=== PATIENT | male | born 1970 | race Caucasian/White ===

== ENCOUNTER 2018-01-06 12:44 | Emergency (ER) | payer BC ==
[2018-01-06] MEDS ORDERED: Ondansetron 4 MG/2 ML SDV IVPUSH ONE (13:34)
[2018-01-06] MEDS ORDERED: Ketorolac 30 MG/ML SDV IVPUSH STA (13:34)
--- NOTE | 2018-01-06 13:37 | EDM.PDOC ---
ED HPI GENERAL MEDICAL PROBLEM - General Chief Complaint: Chest Pain Stated Complaint: CHEST PAIN Time Seen by Provider: 01/06/18 13:19 Source of Information: Reports: Patient, RN Notes Reviewed History Limitations: Reports: No Limitations - History of Present Illness INITIAL COMMENTS - FREE TEXT/NARRATIVE: The patient states that he developed lateral left chest pain - felt along his left anterior axillary line - about 2 days ago, but that has been progressively getting worse. It is stabbing and burning in character. It does not radiate. It is made worse with deep breaths, but the patient states that it is still there even if he remains perfectly still. The patient states that he took ibuprofen, without relief. He states that he has nausea from the pain. No recent fever. No recent cough. He has had nasal congestion, but no recent viral-like symptoms. No recent lower extremity swelling. No recent palpitations. The patient states that he has had similar chest pain in the past. 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 He was found to have a LVEF of 20%. He was treated with lisinopril, Coreg, and aspirin, and his symptoms gradually improved. When asked if he was told what caused his left-sided chest pain, specifically, he states that his doctors speculated that it could be costochondritis or pleurisy. The patient's PCP is Cheryl Coulter NP, in [place]. Left Chest Pain Score (Numeric/FACES): 9 - Related Data Allergies Allergy/AdvReac Type Severity Reaction Status Date / Time morphine Allergy Itching Verified 01/06/18 12:55 barium contrast Allergy Airway Uncoded 01/06/18 12:55 Tightness Home Meds: Home Meds Amitriptyline [Elavil] 50 mg PO BEDTIME 01/06/18 [History] Aspirin [Ecotrin] 1 tab PO DAILY 01/06/18 [History] Carvedilol [Coreg] 1 tab PO BID 01/06/18 [History] ClonazePAM [KlonoPIN] 1 tab PO BID PRN 01/06/18 [History] Dicyclomine HCl [Bentyl] 10 mg PO Q6HR PRN 01/06/18 [History] Fexofenadine [Loan] 1 tab PO DAILY PRN 01/06/18 [History] Fluticasone Propionate [Flonase] 1 spray INH DAILY PRN 01/06/18 [History] Lisinopril 1 tab PO DAILY 01/06/18 [History] Ondansetron [Zofran ODT] 1 tab PO Q8H PRN #10 tab.dis 01/06/18 [Rx] Orphenadrine [Norflex] 1 tab PO Q12H PRN #20 tab.er 01/06/18 [Rx] Pantoprazole Sodium [Protonix] 40 mg PO DAILY 01/06/18 [History] Sertraline [Zoloft] 50 mg PO DAILY 01/06/18 [History] Sertraline [Zoloft] 100 mg PO DAILY 01/06/18 [History] tiZANidine [Zanaflex] 4 mg PO TID PRN 01/06/18 [History] Past Medical History Cardiovascular History: Reports: Cardiomyopathy (idiopathic, resolved) Gastrointestinal History: Reports: Other (See Below) (Peutz-Jeghers syndrome) Neurological History: Reports: Migraines - Infectious Disease History Infectious Disease History: Reports: Chicken Pox, Influenza - Past Surgical History HEENT Surgical History: Reports: Adenoidectomy, Oral Surgery (wisdom teeth excision), Tonsillectomy GI Surgical History: Reports: Appendectomy, Cholecystectomy, Colonoscopy (x 15) , EGD (x 15), Hernia, Abdominal (x 2), Other (See Below) (Small bowel resection) Neurological Surgical History: Reports: Lumbar Spine (L5/S1 microdiskectomy) Social & Family History - Family History Family Medical History: Noncontributory - Tobacco Use Smoking Status *Q: Never Smoker - Caffeine Use Caffeine Use: Reports: Soda - Alcohol Use Alcohol Use History: No - Recreational Drug Use Recreational Drug Use: No - Living Situation & Occupation Living situation: Reports: , with Family (Daughter) Occupation: Employed ([email or web address]) ED ROS GENERAL - Review of Systems Review Of Systems: ROS reveals no pertinent complaints other than HPI. ED EXAM, GENERAL - Physical Exam Exam: See Below Exam Limited By: No Limitations General Appearance: Alert, WD/WN, No Apparent Distress Eye Exam: Bilateral Eye: EOMI, Normal Inspection Ears: Normal External Exam, Hearing Grossly Normal Nose: Normal Inspection Throat/Mouth: Normal Inspection, Normal Lips, Normal Voice, No Airway Compromise Head: Atraumatic, Normocephalic Neck: Normal Inspection, Full Range of Motion Respiratory/Chest: No Respiratory Distress, Lungs Clear, Normal Breath Sounds, No Accessory Muscle Use, Chest Non-Tender (including to the left anterior axillary line). No: Crackles, Rhonchi, Wheezing, Pleural Rub Cardiovascular: Normal Peripheral Pulses, Regular Rate, Rhythm, No Edema, No Gallop, No JVD, No Murmur, No Rub Peripheral Pulses: 4+: Radial (L), Radial (R) GI/Abdominal: Normal Bowel Sounds, Soft, Non-Tender, No Organomegaly, No Distention, No Abnormal Bruit, No Mass (Male) Exam: Deferred Rectal (Males) Exam: Deferred Back Exam: Normal Inspection, Full Range of Motion, NT Extremities: Normal Inspection, Normal Range of Motion, No Pedal Edema, Normal Capillary Refill Neurological: Alert, Oriented, Normal Cognition, No Motor/Sensory Deficits Psychiatric: Normal Affect Skin Exam: Warm, Dry, Intact, Normal Color, No Rash EKG INTERPRETATION EKG Date: 01/06/18 Time: 12:47 Rhythm: NSR Rate (Beats/Min): 84 [place]: Normal P-Wave: Present QRS: Normal ST-T: Normal QT: Normal Comparison: NA - No Prior EKG Course - Vital Signs Last Recorded V/S: Last Vital Signs Temp 36.4 C 01/06/18 12:48 Pulse 82 01/06/18 12:48 Resp 16 01/06/18 12:48 BP 123/84 01/06/18 12:48 Pulse Ox 100 01/06/18 12:48 - Orders/Labs/Meds Orders: Active Orders 24 hr Category Date Time Status EKG 12 Lead [EKG Documentation Completion] [RC] STAT Care 01/06/18 12:53 Active Labs: Laboratory Tests 01/06/18 01/06/18 01/06/18 Range/Units 12:50 12:50 12:50 WBC 6.70 (4.23-9.07) K/mm3 RBC 4.61 L (4.63-6.08) M/mm3 Hgb 14.1 (13.7-17.5) gm/L Hct 41.6 (40.1-51.0) % MCV 90.2 (79.0-92.2) fl MCH 30.6 (25.7-32.2) pg MCHC 33.9 (32.2-35.5) g/dl RDW Std Deviation 43.0 (35.1-43.9) fL Plt Count 233 (163-337) K/mm3 MPV 10.2 (9.4-12.3) fl Neutrophils % (Manual) 50 (40-60) % Band Neutrophils % 0 (0-10) % Lymphocytes % (Manual) 37 (20-40) % Atypical Lymphs % 0 % Monocytes % (Manual) 7 (2-10) % Eosinophils % (Manual) 6 (0.8-7.0) % Basophils % (Manual) 0 L (0.2-1.2) Platelet Estimate Adequate RBC Morph Comment Normal D-Dimer, Quantitative 0.71 H (0.19-0.50) mg/L Sodium 141 (136-145) mEq/L Potassium 3.4 L (3.5-5.1) mEq/L Chloride 105 (98-107) mEq/L Carbon Dioxide 30 (21-32) mEq/L Anion Gap 9.4 (5-15) BUN 13 (7-18) mg/dL Creatinine 0.8 (0.7-1.3) mg/dL Est Cr Clr Drug Dosing 140.15 mL/min Estimated GFR (MDRD) > 60 (>60) mL/min BUN/Creatinine Ratio 16.3 (14-18) Glucose 98 (74-106) mg/dL Calcium 8.5 (8.5-10.1) mg/dL Total Bilirubin 0.4 (0.2-1.0) mg/dL AST 24 (15-37) U/L ALT 23 (16-63) U/L Alkaline Phosphatase 64 (46-116) U/L Troponin I < 0.017 (0.00-0.056) ng/mL Total Protein 6.8 (6.4-8.2) g/dl Albumin 3.5 (3.4-5.0) g/dl Globulin 3.3 gm/dL Albumin/Globulin Ratio 1.1 (1-2) Meds: Medications Discontinued Medications Generic Name Dose Route Start Last Admin Trade Name Freq PRN Reason Stop Dose Admin Ketorolac Tromethamine 30 mg 01/06/18 13:34 01/06/18 13:45 Toradol IVPUSH 01/06/18 13:35 30 mg ONETIME STA Administration Ondansetron HCl 4 mg 01/06/18 13:34 01/06/18 13:43 Zofran IVPUSH 01/06/18 13:35 4 mg ONETIME ONE Administration Ondansetron HCl 4 mg 01/06/18 14:27 01/06/18 14:33 Zofran Odt PO 01/06/18 14:28 4 mg ONETIME ONE Administration Orphenadrine Citrate 100 mg 01/06/18 14:22 01/06/18 14:32 Norflex PO 01/06/18 14:23 100 mg ONETIME STA Administration - Re-Assessments/Exams Free Text/Narrative Re-Assessment/Exam: 01/06/18 13:35 Clearly, the patient's left lateral chest pain is not cardiac in etiology. I am more concerned that it could be due to a PE or pleural effusion. I have ordered blood work, that includes a D-dimer, and a chest x-ray. 01/06/18 14:15 2-view chest radiograph appears to be grossly normal. Cardiac silhouette is within normal limits. No pulmonary vascular congestion. No pleural effusions. No focal infiltrate. No pneumothorax. Formal read per the Radiologist pending. 01/06/18 14:27 Test results discussed with the patient. Today's workup is grossly unremarkable. His D-dimer is slightly elevated at 0.71, but this is well below the we would expect for someone with a pulmonary embolus, and, further, his clinical features are not consistent with a pulmonary embolus. Yes, the patient has pleuritic chest pain, but he also has chest pain if he remains still, which is not consistent with a pulmonary embolus, as the pain from a pulmonary embolus comes from pleurisy from a pulmonary infarct. Further, if the patient had a pulmonary infarct, we would expect to see a wedge-shaped infiltrate in the area of concern on his chest x-ray, which we do not. Nevertheless, I offered to perform a CT angiogram of his chest, not only to rule out a PE, but to see if any other findings might explain the patient's chest pain, but he declined. Based on the patient's history, physical exam, and ED test results, I suspect that the patient is suffering from intercostal muscle spasms. I have ordered Norflex, and will prescribe additional. The patient may also take ibuprofen, however, I advised against that this if the patient is nauseated, which he currently is. I do not have an explanation as to the patient's nausea - it is possible that it is due to his pain, as he suspects, or related to something that he ate that is disagreeing with him. The patient will have received a total of 8 mg of Zofran here in the ED. He will be discharged home with prescriptions for Norflex and Zofran. I recommended that if his symptoms don't improve over the next few days, that he follow-up with his PCP or return to the ED for reevaluation. He agreed to. Departure - Departure Time of Disposition: 14:30 Disposition: DC/Tfer to [facility] Condition: Good Clinical Impression: Intercostal muscle pain, Nausea - Discharge Information *PRESCRIPTION DRUG MONITORING PROGRAM REVIEWED*: Not Applicable *COPY OF PRESCRIPTION DRUG MONITORING REPORT IN PATIENT HUY: Not Applicable Prescriptions: Ondansetron [Zofran ODT] 1 tab PO Q8H PRN #10 tab.dis PRN Reason: Nausea/Vomiting Orphenadrine [Norflex] 1 tab PO Q12H PRN #20 tab.er PRN Reason: Muscle Spasm Instructions: Nausea, Adult, Musculoskeletal Pain Referrals: Cheryl Coulter NP [Ordering Only Provider] - Forms: ED Department Discharge Additional Instructions: You were seen in the emergency room for left side chest pain. Workup in the ER included blood work, a chest x-ray, and an ECG. Your D-dimer was slightly elevated at 0.71, not consistent with a blood clot in your lungs. Otherwise, the remainder of your workup was entirely unremarkable. Based on your history, physical examination, and ER test results, your left- sided chest pain is MOST LIKELY due to spasms of muscles located in between your ribs. You have been started on the muscle relaxant Norflex and the anti-nausea medicine Zofran. Prescriptions for Norflex and Zofran have been sent to the [facility], [address], located just south and across the [address] from [facility]. Take one tablet of Norflex every 12 hours, starting tomorrow morning, Friday , 01/07/2018, as prescribed. Dissolve one tablet of Zofran on your tongue up to every 8 hours, as needed for nausea/vomiting. You may also take ocic-[id number]-[id number] ibuprofen, 2-3 tablets (400-600 mg) every 8 hours, with food, as needed for chest pain. If your symptoms persist past a few days, either follow-up with your PCP, Cheyrl Coulter, or return to the ER for reevaluation. - My Orders Last 24 Hours: My Active Orders 01/06/18 12:53 EKG 12 Lead [EKG Documentation Completion] [RC] STAT - Assessment/Plan Last 24 Hours: My Active Orders 01/06/18 12:53 EKG 12 Lead [EKG Documentation Completion] [RC] STAT
[2018-01-06] MEDS ORDERED: Orphenadrine 100 MG Tab.ER PO STA (14:22)
[2018-01-06] MEDS ORDERED: Ondansetron 4 MG Tab.DIS PO ONE (14:27)
--- NOTE | 2018-01-06 14:33 | CR ---
Chest: Two views of the chest were obtained. Comparison: No prior chest x-ray. Heart size and mediastinum are normal. Lungs are clear. Bony structures are unremarkable. Impression: 1. Nothing acute is seen on two-view chest x-ray. Diagnostic code #1
== END 2018-01-06 14:55 ==
LOC: JD.ED 12:44
DX: R07.82 Intercostal pain (principal); R11.0 Nausea; Z88.5 Allergy status to narcotic agent; Z79.899 Other long term (current) drug therapy
CPT/HCPCS: 36415; 71046; 80053; 84484; 85007; 85027; 85379; 93005; 96374; 96375; 99285; A9270; J1885; J2405; 93010; 99284-25

== ENCOUNTER 2018-05-04 12:00 | Emergency (ER) | payer BC, OTHER ==
[2018-05-04] MEDS ORDERED: Sodium Chloride 0.9% 1,000 ML IV ONE (12:19)
[2018-05-04] MEDS ORDERED: Ketorolac 30 MG/ML SDV IVPUSH ONE (12:19)
[2018-05-04] MEDS ORDERED: Ondansetron 4 MG/2 ML SDV IVPUSH ONE (12:19)
[2018-05-04] MEDS ORDERED: Sodium Chloride 0.9% 10 ML Syringe FLUSH PRN (12:20)
[2018-05-04] MEDS ORDERED: fentaNYL 100 MCG/2 ML SDV IVPUSH ONE (12:37)
[2018-05-04] MEDS ORDERED: Pantoprazole 40 MG Vial IVPUSH ONE (13:04)
[2018-05-04] MEDS ORDERED: Aluminum Hydroxide/Magnesium Hydroxide/Simethicone Susp 30 ML Cup PO ONE (13:04)
--- NOTE | 2018-05-04 13:40 | EDM.PDOC ---
ED HPI GENERAL MEDICAL PROBLEM - General Chief Complaint: Abdominal Pain Stated Complaint: ABDOMINAL PAIN Time Seen by Provider: 05/04/18 12:20 Source of Information: Reports: Patient History Limitations: Reports: No Limitations - History of Present Illness INITIAL COMMENTS - FREE TEXT/NARRATIVE: 47 y/o M with hx Peutz-Jegher's syndrome, multiple prior small bowel obstructions, intussusception, prior small bowel resection, abdominal hernia repair, appendectomy, cholecystectomy, presents with abdominal pain. Pain started fairly suddenly late last night. There was no provoking factor. Pain is located in center of abdomen, sharp, constant, not related to movement. Hasn't eaten today due to no appetite, not clear that abdominal pain is provoked by eating. No vomiting. Normal BM this morning. No dysuria or hematuria. No cough/ chest pain/sob. Hasn't taken anything for the pain. Pain is currently 8/10 severity. States it feels similar to the pain he's had with bowel obstructions previously. Treatments EXPLOSION WELDER: Reports: Acetaminophen Abdomen Pain Score (Numeric/FACES): 10 - Related Data Allergies Allergy/AdvReac Type Severity Reaction Status Date / Time morphine Allergy Itching Verified 05/04/18 12:13 barium contrast Allergy Airway Uncoded 01/06/18 12:55 Tightness Home Meds: Home Meds Amitriptyline [Elavil] 50 mg PO BEDTIME 01/06/18 [History] Aspirin [Ecotrin] 1 tab PO DAILY 01/06/18 [History] Carvedilol [Coreg] 1 tab PO BID 01/06/18 [History] ClonazePAM [KlonoPIN] 1 tab PO BID PRN 01/06/18 [History] Dicyclomine HCl [Bentyl] 10 mg PO Q6HR PRN 01/06/18 [History] Fexofenadine [Loan] 1 tab PO DAILY PRN 01/06/18 [History] Fluticasone Propionate [Flonase] 1 spray INH DAILY PRN 01/06/18 [History] Lisinopril 1 tab PO DAILY 01/06/18 [History] Ondansetron [Zofran ODT] 1 tab PO Q8H PRN #10 tab.dis 01/06/18 [Rx] Pantoprazole Sodium [Protonix] 40 mg PO DAILY 01/06/18 [History] Sertraline [Zoloft] 50 mg PO DAILY 01/06/18 [History] Sertraline [Zoloft] 100 mg PO DAILY 01/06/18 [History] tiZANidine [Zanaflex] 4 mg PO TID PRN 01/06/18 [History] Cyclobenzaprine [Flexeril] 10 mg PO TID PRN #20 tab 02/09/18 [Rx] Hydrocodone/Acetaminophen [Hydrocodon-Acetaminophen 5-325] 1 - 2 each PO Q6HR PRN #20 tablet 02/09/18 [Rx] Past Medical History Cardiovascular History: Reports: Cardiomyopathy Gastrointestinal History: Reports: Other (See Below) Other Gastrointestinal History: Peutz Jaghen's syndrome Musculoskeletal History: Reports: Back Pain, Chronic Neurological History: Reports: Migraines Other Neuro History: small vessel disease - Infectious Disease History Infectious Disease History: Reports: Chicken Pox, Influenza - Past Surgical History HEENT Surgical History: Reports: Adenoidectomy, Oral Surgery, Tonsillectomy GI Surgical History: Reports: Appendectomy, Cholecystectomy, Colonoscopy, EGD, Hernia, Abdominal, Other (See Below) Neurological Surgical History: Reports: Lumbar Spine Other Neurological Surgeries/Procedures: 2013 PARTICAL DISCECTOMY Social & Family History - Family History Family Medical History: Noncontributory - Tobacco Use Smoking Status *Q: Never Smoker - Caffeine Use Caffeine Use: Reports: None - Recreational Drug Use Recreational Drug Use: No - Living Situation & Occupation Living situation: Reports: , with Family (Daughter) Occupation: Employed ([employer]) ED ROS GENERAL - Review of Systems Review Of Systems: See Below Constitutional: Reports: Malaise. Denies: Fever HEENT: Reports: No Symptoms Respiratory: Denies: Shortness of Breath Cardiovascular: Denies: Chest Pain GI/Abdominal: Reports: Abdominal Pain. Denies: Vomiting Musculoskeletal: Reports: No Symptoms Skin: Reports: No Symptoms Neurological: Reports: No Symptoms Psychiatric: Reports: No Symptoms ED EXAM, GI/ABD - Physical Exam Exam: See Below Exam Limited By: No Limitations General Appearance: Alert, WD/WN, No Apparent Distress Eyes: Bilateral: Normal Appearance Ears: Normal External Exam Nose: Normal Inspection Throat/Mouth: Normal Inspection, Normal Oropharynx, Normal Voice Head: Atraumatic, Normocephalic Neck: Normal Inspection, Supple Respiratory/Chest: No Respiratory Distress, Lungs Clear, Normal Breath Sounds, Chest Non-Tender Cardiovascular: Normal Peripheral Pulses, Regular Rate, Rhythm GI/Abdominal Exam: Soft, No Distention, Other (+diffuse mild TTP). No: Rebound Back Exam: Normal Inspection. No: CVA Tenderness (L), CVA Tenderness (R) Extremities: Normal Inspection Neurological: Alert, Oriented, Normal Cognition Psychiatric: Normal Affect, Normal Mood Skin Exam: Warm, Dry, Intact, Normal Color, No Rash Course - Vital Signs Last Recorded V/S: Last Vital Signs Temp 36.2 C 05/04/18 12:10 Pulse 99 05/04/18 12:10 Resp 18 05/04/18 12:10 BP Pulse Ox 100 05/04/18 12:10 - Orders/Labs/Meds Orders: Active Orders 24 hr Category Date Time Status Peripheral IV Care [RC] . DIRECTED Care 05/04/18 12:20 Active Peripheral IV Care [RC] . DIRECTED Care 05/04/18 12:20 Active Sodium Chloride 0.9% [Saline Flush] Med 05/04/18 12:20 Active 10 ml FLUSH ASDIRECTED PRN Sodium Chloride 0.9% [Saline Flush] Med 05/04/18 14:31 Active 10 ml FLUSH ONETIME PRN Peripheral IV Insertion Adult [OM.PC] Routine Oth 05/04/18 12:20 Ordered Medication Orders Sodium Chloride (Saline Flush) 10 ml FLUSH ASDIRECTED PRN PRN Reason: Keep Vein Open Last Admin: 05/04/18 12:28 Dose: 10 ml Sodium Chloride (Saline Flush) 10 ml FLUSH ONETIME PRN PRN Reason: IV FLUSH Last Admin: 05/04/18 15:37 Dose: 10 ml Admin: 05/04/18 15:01 Dose: 10 ml Labs: Laboratory Tests 05/04/18 05/04/18 05/04/18 Range/Units 12:20 12:20 15:02 WBC 7.40 (4.23-9.07) K/mm3 RBC 4.88 (4.63-6.08) M/mm3 Hgb 14.7 (13.7-17.5) gm/L Hct 43.5 (40.1-51.0) % MCV 89.1 (79.0-92.2) fl MCH 30.1 (25.7-32.2) pg MCHC 33.8 (32.2-35.5) g/dl RDW Std Deviation 44.4 H (35.1-43.9) fL Plt Count 238 (163-337) K/mm3 MPV 9.6 (9.4-12.3) fl Neut % (Auto) 56.1 (34.0-67.9) % Lymph % (Auto) 33.0 (21.8-53.1) % [place] % (Auto) 7.4 (5.3-12.2) % Eos % (Auto) 3.0 (0.8-7.0) Baso % (Auto) 0.4 (0.1-1.2) % Neut # (Auto) 4.15 (1.78-5.38) K/mm3 Lymph # (Auto) 2.44 (1.32-3.57) K/mm3 [place] # (Auto) 0.55 (0.30-0.82) K/mm3 Eos # (Auto) 0.22 (0.04-0.54) K/mm3 Baso # (Auto) 0.03 (0.01-0.08) K/mm3 Sodium 139 (136-145) mEq/L Potassium 4.2 (3.5-5.1) mEq/L Chloride 102 (98-107) mEq/L Carbon Dioxide 29 (21-32) mEq/L Anion Gap 12.2 (5-15) BUN 17 (7-18) mg/dL Creatinine 0.9 (0.7-1.3) mg/dL Est Cr Clr Drug Dosing 124.57 mL/min Estimated GFR (MDRD) > 60 (>60) mL/min BUN/Creatinine Ratio 18.9 H (14-18) Glucose 99 (74-106) mg/dL Calcium 9.2 (8.5-10.1) mg/dL Total Bilirubin 0.5 (0.2-1.0) mg/dL AST 24 (15-37) U/L ALT 32 (16-63) U/L Alkaline Phosphatase 84 (46-116) U/L Total Protein 7.8 (6.4-8.2) g/dl Albumin 3.9 (3.4-5.0) g/dl Globulin 3.9 gm/dL Albumin/Globulin Ratio 1.0 (1-2) Lipase 65 L (73-393) U/L Urine Color Yellow (Yellow) Urine Appearance Clear (Clear) Urine pH 7.5 (5.0-8.0) Ur Specific [place] 1.015 (1.005-1.030) Urine Protein Negative (Negative) Urine Glucose (UA) Negative (Negative) Urine Ketones Negative (Negative) Urine Occult Blood Negative (Negative) Urine Nitrite Negative (Negative) Urine Bilirubin Negative (Negative) Urine Urobilinogen 0.2 (0.2-1.0) Ur Leukocyte Esterase Trace H (Negative) Urine RBC Not seen (0-5) /hpf Urine WBC 0-5 (0-5) /hpf Ur Epithelial Cells 0-5 (0-5) /hpf Urine Bacteria Few (FEW) /hpf Urine Mucus Few (FEW) /hpf Meds: Medications Generic Name Dose Route Start Last Admin Trade Name Kristen PRN Reason Stop Dose Admin Sodium Chloride 10 ml 05/04/18 12:20 05/04/18 12:28 Saline Flush FLUSH 10 ml ASDIRECTED PRN Administration Keep Vein Open Sodium Chloride 10 ml 05/04/18 14:31 05/04/18 15:37 Saline Flush FLUSH 10 ml ONETIME PRN Administration IV FLUSH Discontinued Medications Generic Name Dose Route Start Last Admin Trade Name Kristen PRN Reason Stop Dose Admin Al Hydroxide/Mg Hydroxide 30 ml 05/04/18 13:04 05/04/18 13:18 Mag-Al Plus PO 05/04/18 13:05 30 ml ONETIME ONE Administration Diatrizoate Meglum/Diatrizoate Sod 120 ml 05/04/18 14:31 05/04/18 15:36 Gastrografin 37% PO 05/04/18 14:32 90 ml ONETIME ONE Administration Fentanyl 100 mcg 05/04/18 12:37 05/04/18 12:44 Sublimaze IVPUSH 05/04/18 12:38 100 mcg ONETIME ONE Administration Hydromorphone HCl 1 mg 05/04/18 14:56 05/04/18 15:00 Dilaudid IVPUSH 05/04/18 14:57 1 mg ONETIME ONE Administration Sodium Chloride 1,000 mls @ 1,000 mls/hr 05/04/18 12:19 05/04/18 12:26 Normal Saline IV 05/04/18 13:18 1,000 mls/hr ONETIME ONE Administration Iopamidol 100 ml 05/04/18 14:31 05/04/18 15:36 Isovue-300 (61%) IVPUSH 05/04/18 14:32 100 ml ONETIME ONE Administration Ketorolac Tromethamine 30 mg 05/04/18 12:19 05/04/18 12:26 Toradol IVPUSH 05/04/18 12:20 30 mg ONETIME ONE Administration Morphine Sulfate 4 mg 05/04/18 14:35 Morphine IVPUSH Q2H PRN Pain Morphine Sulfate Confirm 05/04/18 14:39 05/04/18 15:01 Morphine Sulfate Administered 05/04/18 14:40 Not Given Dose 4 mg IV .STK-MED ONE Ondansetron HCl 4 mg 05/04/18 12:19 05/04/18 12:26 Zofran IVPUSH 05/04/18 12:20 4 mg ONETIME ONE Administration Pantoprazole Sodium 40 mg 05/04/18 13:04 05/04/18 13:18 Protonix Iv IVPUSH 05/04/18 13:05 40 mg ONETIME ONE Administration - Re-Assessments/Exams Free Text/Narrative Re-Assessment/Exam: 05/04/18 13:59 Discussed with surgeon configuration management advisor Dr. Coleman who suggests patient be transferred due to complex past surgical history. Patient has primarily been cared for at [facility] in [place] and at his home in [place]. [facility] Bunch who suggests I discuss with [facility] surgeon given prior care there. 05/04/18 14:10 Departure - Departure Time of Disposition: 16:17 Disposition: Home, Self-Care 01 Clinical Impression: Abdominal pain Qualifiers: Abdominal location: generalized Qualified Code(s): R10.84 - Generalized abdominal pain - Discharge Information Referrals: Cheryl Coulter NP [Primary Care Provider] - Forms: ED Department Discharge, ED Return to Work/School Form Additional Instructions: 1. Take miralax or the laxative of your choice as needed for constipation 2. Continue your home protonix 3. Follow up with a primary care provider as soon as possible. Call [phone] if you'd like to schedule with a provider here. 4. Also follow up with your statistics intern as soon as possible 5. Return to the ED if you have worsening pain, fever, vomiting without keeping liquids down, or other concerning symptoms - My Orders Last 24 Hours: My Active Orders 05/04/18 12:20 Peripheral IV Care [RC] . DIRECTED Peripheral IV Care [RC] . DIRECTED Sodium Chloride 0.9% [Saline Flush] 10 ml FLUSH ASDIRECTED PRN Peripheral IV Insertion Adult [OM.PC] Routine 05/04/18 14:31 Sodium Chloride 0.9% [Saline Flush] 10 ml FLUSH ONETIME PRN - Assessment/Plan Last 24 Hours: My Active Orders 05/04/18 12:20 Peripheral IV Care [RC] . DIRECTED Peripheral IV Care [RC] . DIRECTED Sodium Chloride 0.9% [Saline Flush] 10 ml FLUSH ASDIRECTED PRN Peripheral IV Insertion Adult [OM.PC] Routine 05/04/18 14:31 Sodium Chloride 0.9% [Saline Flush] 10 ml FLUSH ONETIME PRN
--- NOTE | 2018-05-04 13:46 | CR ---
Abdomen: Supine and upright views of the abdomen were obtained. Comparison: No previous study. Bowel gas pattern is normal. Very minimal increased stool is seen within the colon. Surgical clips seen within the upper abdomen. Bony structures are unremarkable. No free air is seen. Impression: 1. Very minimal increased stool within the colon. 2. Nothing acute is seen. Diagnostic code #2
[2018-05-04] MEDS ORDERED: Iopamidol 612 MG/ML 100 ML Bottle IVPUSH ONE (14:31)
[2018-05-04] MEDS ORDERED: Diatrizoate Meglumine/Diatrizoate Sodium 37% 120 ML Bottle PO ONE (14:31)
[2018-05-04] MEDS ORDERED: Morphine 4 MG/ML Syringe IVPUSH PRN (14:35)
[2018-05-04] MEDS ORDERED: HYDROmorphone 1 MG/ML Syringe IVPUSH ONE (14:56)
[2018-05-04] MEDS: Sodium Chloride 0.9% 10 ML Syringe FLUSH PRN ×2 (15:01→15:37)
--- NOTE | 2018-05-04 15:58 | CT ---
CT abdomen and pelvis Technique: Multiple axial sections were obtained from above the dome of the diaphragm inferiorly through the pubic symphysis. Intravenous and oral contrast was utilized. Delayed images were obtained through the bladder. Comparison: Previous abdominal x-ray performed on the same day (1:10 PM). Findings: Small portion of the visualized lung bases shows nothing acute. Liver contains no focal abnormality. Surgical clips are seen from prior cholecystectomy. Spleen appears within normal limits. Adrenal glands show no nodule. Pancreas appears within normal limits. Kidneys show symmetric contrast enhancement without hydronephrosis or mass. Aorta shows no aneurysm. No retroperitoneal adenopathy or mesenteric abnormalities are seen. No pelvic mass or adenopathy is seen. Incidental mild sigmoid diverticulosis is seen. Slight increased stool is noted throughout the colon. Delayed images shows contrast within the distal ureters as well as within the bladder. Bone window settings were reviewed which appears within normal limits for the patient's age. Impression: 1. Slight increased stool within the colon and other incidental findings. Nothing acute is seen on CT study of the abdomen and pelvis. Diagnostic code #2
== END 2018-05-04 16:30 | disposition home or self-care (01) ==
LOC: JD.ED 12:00
DX: R10.84 Generalized abdominal pain (principal); Z79.82 Long term (current) use of aspirin; Z79.899 Other long term (current) drug therapy; Z88.5 Allergy status to narcotic agent; Z91.041 Radiographic dye allergy status
CPT/HCPCS: 36415; 74019; 74177; 80053; 81001; 83690; 85025; 96361; 96374; 96375; 99285; A9270; C9113; J1170; J1885; J2405; J3010; J7040; Q9963; Q9967; 99284

== ENCOUNTER 2018-06-09 15:45 | Emergency (ER) | payer BC ==
[2018-06-09] MEDS ORDERED: Ondansetron 4 MG/2 ML SDV IVPUSH ONE (16:49)
[2018-06-09] MEDS ORDERED: fentaNYL 100 MCG/2 ML SDV IVPUSH ONE ×2 (16:50→17:18)
[2018-06-09] MEDS ORDERED: Aspirin 81 MG Tab.Chew PO ONE (17:19)
[2018-06-09] MEDS ORDERED: Nitroglycerin 0.4 MG Tab.SL SL ONE (17:20)
[2018-06-09] MEDS ORDERED: Ketorolac 30 MG/ML SDV IVPUSH ONE (17:51)
--- NOTE | 2018-06-09 17:52 | EDM.PDOC ---
<Keyon Snow - Last Filed: 06/09/18 20:34> ED HPI GENERAL MEDICAL PROBLEM - General Chief Complaint: Chest Pain Stated Complaint: CHEST PAIN Time Seen by Provider: 06/09/18 16:24 - History of Present Illness INITIAL COMMENTS - FREE TEXT/NARRATIVE: 48-year-old male presents the ED with left precordial chest pain just underneath his left breast. Was there this morning and gradually has intensified as the day has gone on with deep breathing making it worse. I strong pleuritic component to the pain. 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 He has regained most of his ejection fraction over the last year. Remains on lisinopril and low-dose carvedilol and has been doing very well. Of course is concerned about whether or not this may be heart related. He has no fever chills denies any cough or sputum production. Denies any chest wall pain that is able to localize. He is in the left precordium under the breast and does not radiate anywhere. - Related Data Allergies Allergy/AdvReac Type Severity Reaction Status Date / Time morphine Allergy Itching Verified 06/09/18 15:52 barium contrast Allergy Airway Uncoded 06/09/18 15:52 Tightness Home Meds: Home Meds Amitriptyline [Elavil] 50 mg PO BEDTIME 01/06/18 [History] Dicyclomine HCl [Bentyl] 10 mg PO Q6HR PRN 01/06/18 [History] Fexofenadine [Loan] 1 tab PO DAILY PRN 01/06/18 [History] Fluticasone Propionate [Flonase] 1 spray INH DAILY PRN 01/06/18 [History] Lisinopril 1 tab PO DAILY 01/06/18 [History] Pantoprazole Sodium [Protonix] 40 mg PO DAILY 01/06/18 [History] Sertraline [Zoloft] 50 mg PO DAILY 01/06/18 [History] Sertraline [Zoloft] 100 mg PO DAILY 01/06/18 [History] tiZANidine [Zanaflex] 4 mg PO TID PRN 01/06/18 [History] Magnesium Chloride [Slow-Mag] 71.5 mg PO DAILY #30 tablet. 06/09/18 [Rx] Past Medical History Cardiovascular History: Reports: Cardiomyopathy (Gabriella been diagnosed with a viral cardio myositis which lowered his ejection fraction to 20% and he was in significant heart failure at the time of diagnosis. Travel to the [facility] for treatment and has gradually recovered over the last year to a normal ejection fraction.), Heart Failure ED ROS GENERAL - Review of Systems Review Of Systems: See Below ED EXAM, GENERAL - Physical Exam Exam: See Below Respiratory/Chest: Other (I could elicit no tenderness on firm palpation overall the ribs in the midline on the left side.) Peripheral Pulses: 3+: Posterior Tibial (L), Posterior Tibial (R), Dorsalis Pedis (L), Dorsalis Pedis (R) GI/Abdominal: Normal Bowel Sounds, Soft, Non-Tender, No Organomegaly, No Abnormal Bruit, No Mass, Pelvis Stable, Other (No evidence of an abdominal source for his pain) EKG INTERPRETATION EKG Date: 06/09/18 Time: 15:50 Rhythm: NSR Rate (Beats/Min): 86 [place]: LAD-Left [place] Deviation (-28) P-Wave: Present QRS: Other (There are Q waves V1 be to compare with an old anteroseptal myocardial infarction. There are near Q waves in 3 and aVF suggesting possible old inferior wall myocardial infarction) QT: Prolonged (QTC is mildly prolonged) EKG Interpretation Comments: Abnormal ECG Course - Vital Signs Last Recorded V/S: Last Vital Signs Temp 98.0 F 06/09/18 15:49 Pulse 86 06/09/18 15:49 Resp 28 H 06/09/18 15:49 BP 119/82 06/09/18 17:33 Pulse Ox 100 06/09/18 15:49 - Orders/Labs/Meds Orders: Active Orders 24 hr Category Date Time Status Chest 2V [CR] Stat Exams 06/09/18 16:46 Taken Labs: Laboratory Tests 06/09/18 06/09/18 06/09/18 Range/Units 15:55 15:55 15:55 WBC 7.35 (4.23-9.07) K/mm3 RBC 4.69 (4.63-6.08) M/mm3 Hgb 14.2 (13.7-17.5) gm/L Hct 42.2 (40.1-51.0) % MCV 90.0 (79.0-92.2) fl MCH 30.3 (25.7-32.2) pg MCHC 33.6 (32.2-35.5) g/dl RDW Std Deviation 43.0 (35.1-43.9) fL Plt Count 241 (163-337) K/mm3 MPV 10.0 (9.4-12.3) fl Neut % (Auto) 45.7 (34.0-67.9) % Lymph % (Auto) 41.0 (21.8-53.1) % [place] % (Auto) 9.7 (5.3-12.2) % Eos % (Auto) 3.0 (0.8-7.0) Baso % (Auto) 0.5 (0.1-1.2) % Neut # (Auto) 3.36 (1.78-5.38) K/mm3 Lymph # (Auto) 3.01 (1.32-3.57) K/mm3 [place] # (Auto) 0.71 (0.30-0.82) K/mm3 Eos # (Auto) 0.22 (0.04-0.54) K/mm3 Baso # (Auto) 0.04 (0.01-0.08) K/mm3 PT 10.8 (9.5-12.1) SECONDS INR 0.99 D-Dimer, Quantitative 0.46 (0.19-0.50) mg/L Sodium (136-145) mEq/L Potassium (3.5-5.1) mEq/L Chloride (98-107) mEq/L Carbon Dioxide (21-32) mEq/L Anion Gap (5-15) BUN (7-18) mg/dL Creatinine (0.7-1.3) mg/dL Est Cr Clr Drug Dosing mL/min Estimated GFR (MDRD) (>60) mL/min BUN/Creatinine Ratio (14-18) Glucose (74-106) mg/dL Calcium (8.5-10.1) mg/dL Magnesium (1.8-2.4) mg/dl Total Bilirubin (0.2-1.0) mg/dL AST (15-37) U/L ALT (16-63) U/L Alkaline Phosphatase (46-116) U/L CK-MB (CK-2) (0-3.6) ng/ml Troponin I (0.00-0.056) ng/mL C-Reactive Protein (<1.0) mg/dL Total Protein (6.4-8.2) g/dl Albumin (3.4-5.0) g/dl Globulin gm/dL Albumin/Globulin Ratio (1-2) 06/09/18 Range/Units 15:55 WBC (4.23-9.07) K/mm3 RBC (4.63-6.08) M/mm3 Hgb (13.7-17.5) gm/L Hct (40.1-51.0) % MCV (79.0-92.2) fl MCH (25.7-32.2) pg MCHC (32.2-35.5) g/dl RDW Std Deviation (35.1-43.9) fL Plt Count (163-337) K/mm3 MPV (9.4-12.3) fl Neut % (Auto) (34.0-67.9) % Lymph % (Auto) (21.8-53.1) % [place] % (Auto) (5.3-12.2) % Eos % (Auto) (0.8-7.0) Baso % (Auto) (0.1-1.2) % Neut # (Auto) (1.78-5.38) K/mm3 Lymph # (Auto) (1.32-3.57) K/mm3 [place] # (Auto) (0.30-0.82) K/mm3 Eos # (Auto) (0.04-0.54) K/mm3 Baso # (Auto) (0.01-0.08) K/mm3 PT (9.5-12.1) SECONDS INR D-Dimer, Quantitative (0.19-0.50) mg/L Sodium 140 (136-145) mEq/L Potassium 3.8 (3.5-5.1) mEq/L Chloride 103 (98-107) mEq/L Carbon Dioxide 28 (21-32) mEq/L Anion Gap 12.8 (5-15) BUN 16 (7-18) mg/dL Creatinine 0.9 (0.7-1.3) mg/dL Est Cr Clr Drug Dosing 122.36 mL/min Estimated GFR (MDRD) > 60 (>60) mL/min BUN/Creatinine Ratio 17.8 (14-18) Glucose 82 (74-106) mg/dL Calcium 8.9 (8.5-10.1) mg/dL Magnesium 1.7 L (1.8-2.4) mg/dl Total Bilirubin 0.4 (0.2-1.0) mg/dL AST 18 (15-37) U/L ALT 26 (16-63) U/L Alkaline Phosphatase 69 (46-116) U/L CK-MB (CK-2) 1.9 (0-3.6) ng/ml Troponin I < 0.017 (0.00-0.056) ng/mL C-Reactive Protein < 0.2 (<1.0) mg/dL Total Protein 7.4 (6.4-8.2) g/dl Albumin 4.0 (3.4-5.0) g/dl Globulin 3.4 gm/dL Albumin/Globulin Ratio 1.2 (1-2) Meds: Medications Discontinued Medications Generic Name Dose Route Start Last Admin Trade Name Kristen PRN Reason Stop Dose Admin Aspirin 324 mg 06/09/18 17:19 06/09/18 17:31 Aspirin PO 06/09/18 17:20 324 mg ONETIME ONE Administration Fentanyl 50 mcg 06/09/18 16:50 06/09/18 16:57 Sublimaze IVPUSH 06/09/18 16:51 50 mcg ONETIME ONE Administration Fentanyl 100 mcg 06/09/18 17:18 06/09/18 17:32 Sublimaze IVPUSH 06/09/18 17:19 100 mcg ONETIME ONE Administration Ketorolac Tromethamine 30 mg 06/09/18 17:51 06/09/18 17:56 Toradol IVPUSH 06/09/18 17:52 30 mg ONETIME ONE Administration Nitroglycerin 0.4 mg 06/09/18 17:20 06/09/18 17:33 Nitrostat SL 06/09/18 17:21 0.4 mg ONETIME ONE Administration Ondansetron HCl 4 mg 06/09/18 16:49 06/09/18 16:57 Zofran IVPUSH 06/09/18 16:50 4 mg ONETIME ONE Administration - Radiology Interpretation Free Text/Narrative:: 48-year-old male presents to the ED with pleuritic left-sided precordial chest pain just underneath his left breast. This started early this morning and has progressed in intensity as the day has gone on. It is of course worsened by deep inspiration. He has no history of DVT or recent travel history. He does have a history of previous cardiomyopathy at time of presentation with with severe congestive heart failure and ejection fraction of only 20%. He was treated at the [facility] and over the last year and a half has regained normal ejection fraction of his heart. He remains on low-dose lisinopril and carvedilol. Examination shows no localized tenderness. Lungs are clear . Heart sounds are normal. ECG shows sinus rhythm with Q waves in V1 and V2 and near Q waves in 3 and aVF compatible with possible old anteroseptal and inferior wall myocardial infarction. There are no signs of acute ischemic change. Signs of pericarditis. Landed one view chest x-ray to be done with routine labs to include cardiac markers and d-dimer. - Re-Assessments/Exams Free Text/Narrative Re-Assessment/Exam: 06/09/18 18:06 port chest x-ray reveals a normal cardiac silhouette. Lungs are clear with no sign of vascularity in certainly no pleural effusions.Labs are back white count is 7.35 with automated differential of 45.7% neutrophils. Hemoglobin is 14.2 with hematocrit of 42.2. MCV is normal. Platelet count normal 241,000. PT is 10.8 with an INR of 0.99. D-dimer 0.46 normal.. Sodium 140 with potassium 3.8. Cord 103 with a bicarbonate of 28. And a gap is 12.8 with a BUN of 16. Creatinine is 0.9. GFR is greater than 60. Glucose is 82 calcium 8.9 magnesium slightly low at 1.7. Liver function is normal. CK-MB is 1.9. Troponin I is less than 0.017. C-reactive protein is less than 0.2. Protein is 7.4 with a November fraction of 4.0. All labs essentially are normal with no evidence of heart involvement in terms of reason for his chest pain. He needs them is slightly low which will be remedied with Slow-Mag 1 tablet once daily. Departure - Departure Time of Disposition: 18:24 Disposition: Home, Self-Care 01 Condition: Fair Clinical Impression: Non-cardiac chest pain, Pleurisy, Hypomagnesemia Prescriptions: Magnesium Chloride [Slow-Mag] 71.5 mg PO DAILY #30 tablet. Instructions: Chest Wall Pain, [id number], Pleurisy, [id number] Referrals: PCP,None [Primary Care Provider] - Forms: ED Department Discharge Additional Instructions: Evaluation in the emergency room today in regards to development of left precordial chest pain just below your nipple and breast. Pain is a strong pleuritic component meaning that it's worsens with deep breathing. ECG shows no evidence of heart related illness. Chest x-ray is completely clear with no sign of pneumonia. Heart size is normal and there is no extra fluid within the lungs. Lab work shows no evidence of heart related illness with normal cardiac markers and normal BNP which reflects fluid retention in the lungs. Also markers for infection are negative at this time. You're likely coming down with something viral. Suggest Motrin 600 mg every 6 hours if needed for relief of the pleuritic component of pain. The only abnormality identified on lab work was a slightly low magnesium level II.VII. Normals 1.8-2.2. Your history of cardiomyopathy I would suggest a magnesium supplement such as Slow-mag--1 tablet once daily to act as a supplement to maintain heart health. - My Orders Last 24 Hours: My Active Orders 06/09/18 16:46 Chest 2V [CR] Stat - Assessment/Plan Last 24 Hours: My Active Orders 06/09/18 16:46 Chest 2V [CR] Stat <Libra Heller - Last Filed: 06/09/18 22:34> ED HPI GENERAL MEDICAL PROBLEM - General Source of Information: Reports: Patient History Limitations: Reports: No Limitations - History of Present Illness Onset: Today, Gradual Onset Date: 06/09/18 Onset Time: 09:00 Duration: Hour(s): (started this morning and progressively has gotten worse.), Getting Worse, Intermittent, Waxing/Waning Location: Reports: Chest (left chest sided pain ) Quality: Reports: Ache, Pressure Severity: Mild Improves with: Reports: None Worsens with: Reports: Breathing Associated Symptoms: Reports: Chest Pain, Nausea/Vomiting, Shortness of Breath. Denies: Cough (none), Diaphoresis, Fever/Chills, Headaches, Loss of Appetite, Weakness Left Chest Pain Score (Numeric/FACES): 9 Past Medical History Cardiovascular History: Reports: Cardiomyopathy Gastrointestinal History: Reports: Other (See Below) Other Gastrointestinal History: Peutz Jaghen's syndrome Musculoskeletal History: Reports: Back Pain, Chronic Neurological History: Reports: Migraines Other Neuro History: small vessel disease - Infectious Disease History Infectious Disease History: Reports: Chicken Pox, Influenza - Past Surgical History HEENT Surgical History: Reports: Adenoidectomy, Oral Surgery, Tonsillectomy GI Surgical History: Reports: Appendectomy, Cholecystectomy, Colonoscopy, EGD, Hernia, Abdominal, Other (See Below) Neurological Surgical History: Reports: Lumbar Spine Other Neurological Surgeries/Procedures: 2013 PARTICAL DISCECTOMY Social & Family History - Family History Family Medical History: Noncontributory - Tobacco Use Smoking Status *Q: Never Smoker - Caffeine Use Caffeine Use: Reports: Soda - Recreational Drug Use Recreational Drug Use: No - Living Situation & Occupation Living situation: Reports: , with Family (Daughter) Occupation: Employed ([employer]) ED ROS GENERAL - Review of Systems Review Of Systems: See Below Constitutional: Reports: Fatigue. Denies: Fever, Chills, Night Sweats HEENT: Reports: No Symptoms Respiratory: Reports: Shortness of Breath (history of cardiomyopathy in 2013) Cardiovascular: Reports: Chest Pain. Denies: Dyspnea on Exertion, Edema, Palpitations, Syncope Endocrine: Reports: No Symptoms GI/Abdominal: Reports: No Symptoms : Reports: No Symptoms Musculoskeletal: Reports: Muscle Pain Skin: Reports: No Symptoms Neurological: Reports: No Symptoms Psychiatric: Reports: No Symptoms Hematologic/Lymphatic: Reports: No Symptoms Immunologic: Reports: No Symptoms ED EXAM, GENERAL - Physical Exam Exam: See Below Exam Limited By: No Limitations General Appearance: Alert, WD/WN, No Apparent Distress Nose: Normal Inspection Throat/Mouth: Normal Inspection Neck: Normal Inspection Respiratory/Chest: No Respiratory Distress, Lungs Clear, Normal Breath Sounds, No Accessory Muscle Use, Chest Non-Tender Cardiovascular: Normal Peripheral Pulses, Regular Rate, Rhythm, No Edema, No Gallop, No JVD, No Murmur, No Rub Back Exam: Normal Inspection, Full Range of Motion Extremities: Normal Inspection, Normal Range of Motion, Non-Tender, No Pedal Edema, Normal Capillary Refill Neurological: Alert, Oriented, Normal Cognition, Normal Gait Psychiatric: Normal Affect, Normal Mood Skin Exam: Warm, Intact, Normal Color Lymphatic: No Adenopathy
--- NOTE | 2018-06-10 07:01 | CR ---
Chest: Two views of the chest were obtained. Comparison: Prior chest x-ray of 01/06/18. Heart size and mediastinum are normal. Lungs are clear with no acute parenchymal change. Slight degenerative change is noted within the spine. Surgical clips are seen from prior cholecystectomy. Impression: 1. Nothing acute is seen on two-view chest x-ray. Diagnostic code #1
== END 2018-06-09 18:39 | disposition home or self-care (01) ==
LOC: JD.ED 15:45
DX: R07.2 Precordial pain (principal); R09.1 Pleurisy; E83.42 Hypomagnesemia; Z88.8 Allergy status to other drugs, medicaments and biological substances; Z88.5 Allergy status to narcotic agent; Z79.899 Other long term (current) drug therapy
CPT/HCPCS: 36415; 71046; 80053; 82553; 83735; 84484; 85025; 85379; 85610; 86140; 96374; 96375; 96376; 99285; A9270; J1885; J2405; J3010; 93010; 99284

== ENCOUNTER 2018-09-02 11:23 | Emergency (ER) | payer BC ==
[2018-09-02] MEDS ORDERED: Orphenadrine 100 MG Tab.ER PO STA (13:29)
[2018-09-02] MEDS ORDERED: Acetaminophen/HYDROcodone 325-5 MG Tab PO ONE (13:29)
--- NOTE | 2018-09-02 13:31 | EDM.PDOC ---
ED HPI GENERAL MEDICAL PROBLEM - General Chief Complaint: Back Pain or Injury Stated Complaint: BACK PAIN Time Seen by Provider: 09/02/18 13:00 Source of Information: Reports: Patient, RN Notes Reviewed History Limitations: Reports: No Limitations - History of Present Illness INITIAL COMMENTS - FREE TEXT/NARRATIVE: The patient states that he has had tightness in his lower back for the past 2 days. He then lifted a laundry basket around 10:30 this morning, after which his lower back pain got worse, and he developed a numbness and tingling sensation running down his posterior lower extremities to the mid calves. The tingling and numbness sensation has been coming and going. He has not had any bowel or bladder incontinence. He states that he took 800 mg of ibuprofen around 11:00. The patient has had similar symptoms in the past. He underwent partial discectomy of L5-S1 in 2012. He was also seen in this ED on 02/09/2018 with a similar complaint of low back pain and bilateral lower extremity radiculopathy, after lifting heavy items at work. No tests were performed during that ED evaluation. He was treated with IM Dilaudid, IM Toradol, and oral Flexeril before being discharged home with a prescription for 20 tablets of [place] and 20 tablets of Flexeril. He was to follow-up with his PCP following an outpatient MRI. A MRI of the lumbar spine without contrast the patient states that he on 2017 found some degenerative disc changes, but no focal herniation or central canal stenosis. The neural foramina were patent where the nerve roots exited. The patient's PCP is Cheryl Coulter NP, in [place]. Lower Back Pain Score (Numeric/FACES): 3 - Related Data Allergies Allergy/AdvReac Type Severity Reaction Status Date / Time morphine Allergy Itching Verified 09/02/18 11:32 barium contrast Allergy Airway Uncoded 06/09/18 15:52 Tightness Home Meds: Home Meds Fexofenadine [Loan] 1 tab PO DAILY PRN 01/06/18 [History] Fluticasone Propionate [Flonase] 1 spray INH DAILY PRN 01/06/18 [History] Lisinopril 1 tab PO DAILY 01/06/18 [History] Pantoprazole Sodium [Protonix] 40 mg PO DAILY 01/06/18 [History] tiZANidine [Zanaflex] 4 mg PO TID PRN 01/06/18 [History] Acetaminophen/HYDROcodone [[place] 325-5 MG] 1 - 2 tab PO Q6H PRN #20 tablet 09/02 [Rx] Orphenadrine [Norflex] 1 tab PO Q12H PRN #20 tab 09/02/18 [Rx] predniSONE [Prednisone] 1 tab PO DAILY #4 tablet 09/02/18 [Rx] Past Medical History HEENT History: Reports: Allergic Rhinitis Cardiovascular History: Reports: Cardiomyopathy (Viral, largely recovered), 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 Gastric polyps.) Musculoskeletal History: Reports: Back Pain, Chronic Psychiatric History: Reports: Anxiety, Depression - Infectious Disease History Infectious Disease History: Reports: Chicken Pox, Influenza - Past Surgical History HEENT Surgical History: Reports: Adenoidectomy, Oral Surgery (wisdom teeth extraction), Tonsillectomy GI Surgical History: Reports: Appendectomy, Cholecystectomy (2009 or 2010), Colonoscopy (x 10), EGD (x 10), Hernia, Abdominal (Incisional) Male Surgical History: Reports: Vasectomy Neurological Surgical History: Reports: Lumbar Spine (L5-S1 partial discectomy 2012) Social & Family History - Family History Family Medical History: Noncontributory - Tobacco Use Smoking Status *Q: Never Smoker - Caffeine Use Caffeine Use: Reports: Soda - Alcohol Use Alcohol Use History: No - Recreational Drug Use Recreational Drug Use: No - Living Situation & Occupation Living situation: Reports: , with Family (Daughter) Occupation: Employed ([employer]) ED ROS GENERAL - Review of Systems Review Of Systems: ROS reveals no pertinent complaints other than HPI. ED EXAM,LOWER BACK PAIN/INJURY - Physical Exam Exam: See Below Exam Limited By: No Limitations General Appearance: Alert, WD/WN, No Apparent Distress Eye Exam: Bilateral Eye: EOMI, Normal Inspection Ears: Normal External Exam, Hearing Grossly Normal Nose: Normal Inspection Throat/Mouth: Normal Inspection, Normal Lips, Normal Voice, No Airway Compromise Head: Atraumatic, Normocephalic Neck: Normal Inspection, Full Range of Motion Respiratory/Chest: No Respiratory Distress, Lungs Clear, Normal Breath Sounds, No Accessory Muscle Use Cardiovascular: Normal Peripheral Pulses, Regular Rate, Rhythm, No Edema, No Gallop, No JVD, No Murmur, No Rub GI/Abdominal: Normal Bowel Sounds, Soft, Non-Tender, No Organomegaly, No Distention, No Abnormal Bruit, No Mass (Male) Exam: Deferred Rectal (Males) Exam: Deferred Back Exam: Normal Inspection, Other (Straight leg raise limited to 45 bilaterally, due to low back pain, but some tingling down both lower 70 is induced with forced dorsiflexion. The patient is able to flex his spine to 45, limited by low back pain only. The patient is able to extend his spine to 15, limited by low back pain only. Patient is able to tilt his spine to 15 bilaterally, limited by low back pain only. The patient is able to twist spine to about 10 bilaterally, limited only by low back pain only. Unilateral knee bend is limited, bilaterally, greater on the left than the right.) Extremities: Normal Inspection, Normal Range of Motion, No Pedal Edema, Normal Capillary Refill Neurological: Alert, Oriented x 3, Abnormal Sensation (The patient reports tingling sensation in both of his feet.) Psychiatric: Normal Affect Skin Exam: Warm, Dry, Intact, Normal Color, No Rash Course - Vital Signs Last Recorded V/S: Last Vital Signs Temp 36.8 C 09/02/18 11:30 Pulse 93 09/02/18 11:30 Resp 16 09/02/18 11:30 BP 140/88 09/02/18 11:30 Pulse Ox 99 09/02/18 11:30 - Orders/Labs/Meds Meds: Medications Discontinued Medications Generic Name Dose Route Start Last Admin Trade Name Kristen PRN Reason Stop Dose Admin Hydrocodone Bitart/Acetaminophen 2 tab 09/02/18 13:29 09/02/18 13:36 [place] 325-5 Mg PO 09/02/18 13:30 2 tab ONETIME ONE Administration Orphenadrine Citrate 100 mg 09/02/18 13:29 09/02/18 13:36 Norflex PO 09/02/18 13:30 100 mg ONETIME STA Administration Prednisone 60 mg 09/02/18 14:19 09/02/18 14:45 Prednisone PO 09/02/18 14:20 60 mg ONETIME STA Administration - Re-Assessments/Exams Free Text/Narrative Re-Assessment/Exam: 09/02/18 13:30 Most of the patient's pain is localized to his lower back, with only intermittent radiation down both lower extremities as far as his calves, although he also reports tingling to both his feet after my evaluation of him. His exam is consistent with a central canal herniated disc with no nerve impingement or entrapment. A CT scan of the lumbar spine was ordered by Dr. Snow - I will await those results before initiating steroids, however, in the meantime, the patient will be started on oral [place] and Norflex. 09/02/18 13:48 CT of the lumbar spine without contrast is read by Dr. Montemayor as: 1. Degenerative changes noted above. No significant change is seen when compared to prior MRI. Specifically, Dr. Montemayor reports "L5-S1: Moderate disc space narrowing is seen. Lucency is seen within the superior endplate of S1 which is felt to be degenerative in etiology. Minimal posterior spurring is seen. Mild diffuse posterior disc bulge is noted. No central canal stenosis is seen. Neural foramina appear patent where the nerve roots exit." 09/02/18 14:20 CT results discussed with the patient. I will start the patient on oral prednisone today, and prescribe 4 additional days, along with Norflex and [place]. I will provide a note for the patient's work, so that he can avoid heavy lifting. Departure - Departure Time of Disposition: 14:23 Disposition: Home, Self-Care 01 Condition: Good Clinical Impression: Herniated vertebral disc - Discharge Information *PRESCRIPTION DRUG MONITORING PROGRAM REVIEWED*: Not Applicable *COPY OF PRESCRIPTION DRUG MONITORING REPORT IN PATIENT HUY: Not Applicable Prescriptions: Acetaminophen/HYDROcodone [[place] 325-5 MG] 1 - 2 tab PO Q6H PRN #20 tablet PRN Reason: Pain (Severe 7-10) Orphenadrine [Norflex] 1 tab PO Q12H PRN #20 tab PRN Reason: Muscle Spasm predniSONE [Prednisone] 1 tab PO DAILY #4 tablet Instructions: Herniated Disk Referrals: Cheryl Coulter DIAL MOUNTER [Primary Care Provider] - Forms: ED Department Discharge, ED Return to Work/School Form Additional Instructions: You were seen in the emergency room for low back pain radiating down the back of both of your lower extremities. Workup in the ER included a CT scan of your lower back without contrast. The CT scan confirmed a mild disc bulge at L5-S1, which is most likely the cause of your symptoms. You have been started on the steroid prednisone. Prescriptions for prednisone, Norflex, and [place] have been provided to you. Take one tablet of prednisone every day, starting tomorrow, , 09/03/2018 , as prescribed. Finish the entire prescription unless told otherwise by a doctor. If you take prednisone, DO NOT also take an NSAID, such as aspirin, ibuprofen, or naproxen, as taking one of these medicines can significantly increase the risk of your developing a GI bleed. Stay on your pantoprazole. Take one tablet of the muscle relaxant Norflex every 12 hours, starting tomorrow morning, , 09/03/2018, as prescribed. Take 1 to 2 tablets of the prescription opioid [place] up to every 6 hours, as needed for pain. If you take [place], do not drive or operate heavy machinery for 10 hours afterwards. Porterville may cause constipation, so consider taking a stool softener. Follow-up with your PCP, Cheryl Coulter NP, if your symptoms fail to improve within the next few days. If any other problems, please do not hesitate to return to the ER.
--- NOTE | 2018-09-02 13:39 | CT ---
CT lumbar spine Technique: Multiple axial sections were obtained from above the T11-T12 disc inferiorly through the L5-S1 disc. Reconstructed coronal and sagittal images were reviewed. Comparison: Previous MRI lumbar spine study of 02/13/18. Findings: T11-T12: Mild disc space narrowing is seen with slight Schmorl's node deformities. Posterior disc maintains a concave margin. No central canal stenosis or neural foraminal stenosis is seen. T12-L1: Mild posterior disc space narrowing is seen. Posterior disc is preserved. No central canal stenosis or neural foraminal stenosis is seen. L1-L2: Minimal Schmorl's node deformities are seen. Very minimal circumferential disc bulge is seen. Posterior disc maintains a concave margin. No central canal stenosis or neural foraminal stenosis is seen. L2-L3: Mild circumferential disc bulge is seen. Posterior disc maintains a minimally concave margin. No central canal stenosis or neural foraminal stenosis is seen. L3-L4: Mild circumferential disc bulge is seen. Posterior disc has a mostly planar margin. No central canal stenosis is seen. Neural foramina are patent. L4-L5: Mild posterior disc bulge is seen to the midline. No central canal stenosis or neural foraminal stenosis is seen. L5-S1: Moderate disc space narrowing is seen. Lucency is seen within the superior endplate of S1 which is felt to be degenerative in etiology. Minimal posterior spurring is seen. Mild diffuse posterior disc bulge is noted. No central canal stenosis is seen. Neural foramina appear patent where the nerve roots exit. No fracture or abnormal subluxation is seen. Impression: 1. Degenerative change as noted above. No significant change is seen when compared to prior MRI. Diagnostic code #3
[2018-09-02] MEDS ORDERED: predniSONE 20 MG Tab PO STA (14:19)
== END 2018-09-02 15:00 | disposition home or self-care (01) ==
LOC: JD.ED 11:23
DX: M51.27 Other intervertebral disc displacement, lumbosacral region (principal); F41.9 Anxiety disorder, unspecified; F32.9 Major depressive disorder, single episode, unspecified; Z88.5 Allergy status to narcotic agent; Z79.899 Other long term (current) drug therapy
CPT/HCPCS: 72131; 99283; A9270

== ENCOUNTER 2018-11-27 15:57 | Observation (INO) | payer BC ==
[2018-11-27] MEDS ORDERED: Aspirin 81 MG Tab.Chew PO ONE (16:20)
[2018-11-27] MEDS ORDERED: Sodium Chloride 0.9% 10 ML Syringe FLUSH PRN (16:20)
[2018-11-27] MEDS ORDERED: Ondansetron 4 MG/2 ML SDV IVPUSH ONE (16:21)
[2018-11-27] MEDS ORDERED: HYDROmorphone 1 MG/ML Syringe IVPUSH ONE ×2 (16:21→18:26)
--- NOTE | 2018-11-27 18:21 | EDM.PDOC ---
ED HPI GENERAL MEDICAL PROBLEM - General Chief Complaint: Chest Pain Stated Complaint: CHEST PAIN Time Seen by Provider: 11/27/18 16:06 Source of Information: Reports: Patient History Limitations: Reports: No Limitations - History of Present Illness INITIAL COMMENTS - FREE TEXT/NARRATIVE: The patient presents with chest pain. This stared at 1pm today. The pain is pressure and it is in the left side of his chest and it radiates to his neck. He has no shortness of breath with this. He took 2 nitro and the pain did not get better. He took a baby aspirin this morning. He has no fever, chills, cough, congestion or runny nose. He has no abdominal pain, nausea or vomiting. 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 That has improved. He had chest pain and a headache earlier this month in [place] and he was admitted to [facility] on 11/10/18. They found he had migraines. They did a stress test and that showed some possible ischemia in the septal region. They were going to do an angiogram but 1 year ago he had clean arteries. They gave him some nitro and follow up on 12/10. He tried the nitro tonight and that did not help. He has no family history of heart disease. He does not smoke. He has no history of hypertension or hypercholesterolemia. Onset: Sudden Duration: Hour(s): Location: Reports: Chest Quality: Reports: Pressure Severity: Severe Improves with: Reports: None Worsens with: Reports: None Associated Symptoms: Reports: Chest Pain. 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[employer]: nitro x 2 and also one baby aspirin today Left Chest Pain Score (Numeric/FACES): 9 - Related Data Allergies Allergy/AdvReac Type Severity Reaction Status Date / Time morphine Allergy Itching Verified 09/02/18 11:32 barium contrast Allergy Airway Uncoded 06/09/18 15:52 Tightness Home Meds: Home Meds Fexofenadine [Loan] 180 mg PO DAILY PRN 01/06/18 [History] Lisinopril 2.5 mg PO DAILY 01/06/18 [History] Pantoprazole Sodium [Protonix] 40 mg PO DAILY 01/06/18 [History] tiZANidine [Zanaflex] 4 mg PO TID PRN 01/06/18 [History] Aspirin [Halfprin] 81 mg PO DAILY 11/27/18 [History] Butalbital/Aspirin/Caffeine [Fiorinal 50-325-40 MG] 2 cap PO Q6H PRN 11/27/18 [ History] Carvedilol [Coreg] 3.125 mg PO DAILY 11/27/18 [History] Nitroglycerin [Nitrostat] 0.4 mg SL ASDIRECTED 11/27/18 [History] Prochlorperazine Maleate [Compazine] 10 mg PO Q6H PRN 11/27/18 [History] SUMAtriptan Succinate [Imitrex] 50 mg PO ASDIRECTED 11/27/18 [History] traZODone HCl [Trazodone HCl] 50 mg PO BEDTIME PRN 11/27/18 [History] Past Medical History HEENT History: Reports: Allergic Rhinitis Cardiovascular History: Reports: Cardiomyopathy, Heart Failure Gastrointestinal History: Reports: Colon Polyp, Diverticulosis, GERD, Other ( See Below) Other Gastrointestinal History: Peutz Jaghen's syndrome Musculoskeletal History: Reports: Back Pain, Chronic Neurological History: Reports: Migraines, Other (See Below) Other Neuro History: states has "migraine syndrome." Psychiatric History: Reports: Anxiety, Depression - Infectious Disease History Infectious Disease History: Reports: Chicken Pox - Past Surgical History HEENT Surgical History: Reports: Adenoidectomy, Oral Surgery, Tonsillectomy GI Surgical History: Reports: Appendectomy, Cholecystectomy, Colonoscopy, EGD, Hernia, Abdominal Male Surgical History: Reports: Vasectomy Neurological Surgical History: Reports: Lumbar Spine Musculoskeletal Surgical History: Reports: Other (See Below) Other Musculoskeletal Surgeries/Procedures:: back surgery. Social & Family History - Family History Family Medical History: Noncontributory - Tobacco Use Smoking Status *Q: Never Smoker Second Hand Smoke Exposure: No - Caffeine Use Caffeine Use: Reports: None - Recreational Drug Use Recreational Drug Use: No - Living Situation & Occupation Living situation: Reports: , with Family (Daughter) Occupation: Employed ([employer]) ED [facility] GENERAL - Review of Systems Review Of Systems: See Below Constitutional: Reports: No Symptoms HEENT: Reports: No Symptoms Respiratory: Reports: No Symptoms Cardiovascular: Reports: Chest Pain Endocrine: Reports: No Symptoms GI/Abdominal: Reports: No Symptoms : Reports: No Symptoms Skin: Reports: No Symptoms ED EXAM, GENERAL - Physical Exam Exam: See Below Exam Limited By: No Limitations General Appearance: Alert, No Apparent Distress Ears: Normal External Exam Nose: Normal Inspection Head: Atraumatic, Normocephalic Neck: Normal Inspection Respiratory/Chest: No Respiratory Distress, Lungs Clear, Normal Breath Sounds Cardiovascular: Regular Rate, Rhythm, No Edema, No Murmur GI/Abdominal: Soft, Non-Tender, No Organomegaly, No Mass Back Exam: Normal Inspection Extremities: Normal Inspection EKG INTERPRETATION EKG Date: 11/27/18 Time: 18:35 Rhythm: NSR Rate (Beats/Min): 80 [place]: Normal P-Wave: Present QRS: Normal ST-T: Normal QT: Normal Course - Vital Signs Last Recorded V/S: Last Vital Signs Temp 97.8 F 11/27/18 16:06 Pulse 100 11/27/18 16:06 Resp 33 H 11/27/18 16:06 BP 125/81 11/27/18 16:06 Pulse Ox 97 11/27/18 16:06 - Orders/Labs/Meds Orders: Active Orders 24 hr Category Date Time Status Cardiac Monitoring [RC] . DIRECTED Care 11/27/18 16:20 Active EKG Documentation Completion [RC] ASDIRECTED Care 11/27/18 18:27 Active EKG Documentation Completion [RC] STAT Care 11/27/18 16:20 Active Peripheral IV Care [RC] . DIRECTED Care 11/27/18 16:20 Active Chest 1V Frontal [CR] Stat Exams 11/27/18 16:21 Taken MG [MAGNESIUM] [CHEM] Stat Lab 11/27/18 18:48 Ordered TROPONIN I [CHEM] Stat Lab 11/27/18 18:48 Ordered Sodium Chloride 0.9% [Saline Flush] Med 11/27/18 16:20 Active 10 ml FLUSH ASDIRECTED PRN Peripheral IV Insertion Adult [OM.PC] Stat Oth 11/27/18 16:20 Ordered EKG 12 Lead [EK] Stat Ther 11/27/18 18:27 Ordered Medication Orders Sodium Chloride (Saline Flush) 10 ml FLUSH ASDIRECTED PRN PRN Reason: Keep Vein Open Last Admin: 11/27/18 16:40 Dose: 10 ml Labs: Laboratory Tests 11/27/18 11/27/18 Range/Units 16:40 16:40 WBC 7.37 (4.23-9.07) K/mm3 RBC 4.79 (4.63-6.08) M/mm3 Hgb 14.5 (13.7-17.5) gm/L Hct 42.3 (40.1-51.0) % MCV 88.3 (79.0-92.2) fl MCH 30.3 (25.7-32.2) pg MCHC 34.3 (32.2-35.5) g/dl RDW Std Deviation 42.8 (35.1-43.9) fL Plt Count 230 (163-337) K/mm3 MPV 9.5 (9.4-12.3) fl Neut % (Auto) 49.8 (34.0-67.9) % Lymph % (Auto) 35.0 (21.8-53.1) % [place] % (Auto) 9.8 (5.3-12.2) % Eos % (Auto) 4.9 (0.8-7.0) Baso % (Auto) 0.5 (0.1-1.2) % Neut # (Auto) 3.67 (1.78-5.38) K/mm3 Lymph # (Auto) 2.58 (1.32-3.57) K/mm3 [place] # (Auto) 0.72 (0.30-0.82) K/mm3 Eos # (Auto) 0.36 (0.04-0.54) K/mm3 Baso # (Auto) 0.04 (0.01-0.08) K/mm3 Sodium 140 (136-145) mEq/L Potassium 4.3 (3.5-5.1) mEq/L Chloride 106 (98-107) mEq/L Carbon Dioxide 26 (21-32) mEq/L Anion Gap 12.3 (5-15) BUN 20 H (7-18) mg/dL Creatinine 0.9 (0.7-1.3) mg/dL Est Cr Clr Drug Dosing 123.23 mL/min Estimated GFR (MDRD) > 60 (>60) mL/min BUN/Creatinine Ratio 22.2 H (14-18) Glucose 104 (74-106) mg/dL Calcium 8.6 (8.5-10.1) mg/dL Total Bilirubin 0.3 (0.2-1.0) mg/dL AST 19 (15-37) U/L ALT 47 (16-63) U/L Alkaline Phosphatase 81 (46-116) U/L Troponin I < 0.017 (0.00-0.056) ng/mL Total Protein 7.2 (6.4-8.2) g/dl Albumin 3.6 (3.4-5.0) g/dl Globulin 3.6 gm/dL Albumin/Globulin Ratio 1.0 (1-2) Meds: Medications Generic Name Dose Route Start Last Admin Trade Name Freq PRN Reason Stop Dose Admin Sodium Chloride 10 ml 11/27/18 16:20 11/27/18 16:40 Saline Flush FLUSH 10 ml ASDIRECTED PRN Administration Keep Vein Open Discontinued Medications Generic Name Dose Route Start Last Admin Trade Name Freq PRN Reason Stop Dose Admin Aspirin 324 mg 11/27/18 16:20 11/27/18 17:02 Aspirin PO 11/27/18 16:21 324 mg ONETIME ONE Administration Hydromorphone HCl 1 mg 11/27/18 16:21 11/27/18 16:51 Dilaudid IVPUSH 11/27/18 16:22 1 mg ONETIME ONE Administration Hydromorphone HCl 1 mg 11/27/18 18:26 11/27/18 18:34 Dilaudid IVPUSH 11/27/18 18:27 1 mg ONETIME ONE Administration Ondansetron HCl 4 mg 11/27/18 16:21 11/27/18 16:49 Zofran IVPUSH 11/27/18 16:22 4 mg ONETIME ONE Administration - Re-Assessments/Exams Free Text/Narrative Re-Assessment/Exam: 11/27/18 19:05 I ordered an IV saline lock, aspirin, EKG, CXR, labs and dilaudid 1mg IV. His EKG shows a NSR with no acute changes. His CXR looks good. His CBC and CMP look good. His troponin is negative. His pain is down to a 5/10. I called [facility] in [place] and talked with Dr Drew and he did not think the patient needed to go down to [place]. He did recommend observation tonight and repeat troponins and EKGs. If there is any changes then he would take him. If not he would see him in clinic on Friday. I talked with Dr Myers and he agreed to the admission. Departure - Departure Time of Disposition: 19:10 Disposition: Refer to Observation Condition: Good Clinical Impression: Chest pain Qualifiers: Chest pain type: unspecified Qualified Code(s): R07.9 - Chest pain, unspecified Referrals: Cheryl Coulter, TOY PAINTER [Primary Care Provider] - Forms: ED Department Discharge - My Orders Last 24 Hours: My Active Orders 11/27/18 16:20 Cardiac Monitoring [RC] . DIRECTED EKG Documentation Completion [RC] STAT Peripheral IV Care [RC] . DIRECTED Sodium Chloride 0.9% [Saline Flush] 10 ml FLUSH ASDIRECTED PRN Peripheral IV Insertion Adult [OM.PC] Stat 11/27/18 16:21 Chest 1V Frontal [CR] Stat 11/27/18 18:27 EKG Documentation Completion [RC] ASDIRECTED EKG 12 Lead [EK] Stat 11/27/18 18:48 MG [MAGNESIUM] [CHEM] Stat TROPONIN I [CHEM] Stat - Assessment/Plan Last 24 Hours: My Active Orders 11/27/18 16:20 Cardiac Monitoring [RC] . DIRECTED EKG Documentation Completion [RC] STAT Peripheral IV Care [RC] . DIRECTED Sodium Chloride 0.9% [Saline Flush] 10 ml FLUSH ASDIRECTED PRN Peripheral IV Insertion Adult [OM.PC] Stat 11/27/18 16:21 Chest 1V Frontal [CR] Stat 11/27/18 18:27 EKG Documentation Completion [RC] ASDIRECTED EKG 12 Lead [EK] Stat 11/27/18 18:48 MG [MAGNESIUM] [CHEM] Stat TROPONIN I [CHEM] Stat
[2018-11-27] MEDS ORDERED: TRAZODONE HCL 50 MG PO PRN (21:27)
[2018-11-27] MEDS ORDERED: Acetaminophen/Butalbital/Caffeine 325-50-40 MG Tab PO PRN (21:27)
[2018-11-27] MEDS ORDERED: tiZANidine 4 MG Tab PO PRN (21:27)
[2018-11-27] MEDS ORDERED: Prochlorperazine 5 MG Tab PO PRN (21:27)
[2018-11-27] MEDS ORDERED: Bisacodyl 5 MG Tab PO PRN (21:28)
[2018-11-27] MEDS ORDERED: Docusate Sodium 100 MG Cap PO PRN (21:28)
[2018-11-27] MEDS ORDERED: Ondansetron 4 MG/2 ML SDV IV PRN (21:28)
[2018-11-27] MEDS ORDERED: Acetaminophen 325 MG Tab PO PRN (21:28)
[2018-11-27] MEDS ORDERED: Albuterol/Ipratropium 3.0-0.5 MG/3 ML Neb Soln NEB PRN ×2 (21:28→22:00)
[2018-11-27] MEDS ORDERED: Promethazine 6.25 MG in Sodium Chloride 0.9% 50 ML IV PRN (21:28)
[2018-11-27] MEDS ORDERED: LORazepam 2 MG/ML SDV IV PRN (21:28)
[2018-11-27] MEDS ORDERED: Polyethylene Glycol 3350 Powder 17 GM Packet PO PRN (21:28)
[2018-11-27] MEDS ORDERED: Temazepam 15 MG Cap PO PRN (21:28)
[2018-11-27] MEDS ORDERED: Non-Formulary Medication 1 Each (Nitroglycerin [Nitrostat] 0.4 MG) SL SCH (21:30)
[2018-11-27] MEDS ORDERED: SUMAtriptan 50 MG Tab PO PRN (21:30)
--- NOTE | 2018-11-27 21:42 | PCM.SN ---
- Free Text/Narrative Note: 48 yo with past medical hx/o AR, Cardiomyopathy, HF, GERD, Diverticulosis, Abdominal Hernia and Migraine ANTHONY who comes in for chest pain r/o ACS. He describes his pain as pressure like with radiation to his shoulder, jaw and arm. His serial troponin and EKG so far were negative. He received initial treatment in ED with improved symptoms. His chest pain is now localized to his left anterior chest and describes it as heaviness. He has no other complaints.
[2018-11-27] MEDS: HYDROmorphone 0.5 MG/0.5 ML Syringe IVPUSH PRN (22:16)
[2018-11-27] MEDS: Acetaminophen/HYDROcodone 325-5 MG Tab PO PRN (22:18)
[2018-11-27] MEDS ORDERED: Lisinopril 2.5 MG Tab PO SCH (22:26)
[2018-11-27] MEDS ORDERED: Pantoprazole 40 MG Tab.CR PO SCH (22:28)
[2018-11-27] MEDS: Carvedilol 3.125 MG Tab PO SCH (23:08)
--- NOTE | 2018-11-28 00:34 | PCM.HP.2 ---
H&P History of Present Illness - General Date of Service: 11/28/18 Admit Problem/Dx: Admission Diagnosis/Problem Admission Diagnosis/Problem Chest pain Source of Information: Patient, Old Records, Provider, RN Notes Reviewed History Limitations: Reports: No Limitations - History of Present Illness Initial Comments - Free Text/Narative: This is a 48 yo white male with past medical hx/o AR, Cardiomyopathy, HF with Unknown EF, Hx/o Colon Polyp, Diverticulosis, GERD, Peutz Jeghers Syndrome, Chronic Back Pain, Migraines, Anxiety and Depression who comes in with complaints of chest pain at rest that started at about 1300 yesterday. He describes it as pressure like with radiation to his shoulder, jaw and left arm. He took nitro x 2 and a baby ASA but w/o any improvement. Patient had a hx/o cardiomyopathy in 2013 with an EF of as low as 20%. He had a heart cath about a year ago and it was clean according to him. His initial work up in ED was unremarkable. Hi serial troponin and EKGs were negative. His cased was discussed with a [place] family nurse and we were advised to keep him for observation and do chest pain work up. If he is positive , he will be shipped out to [place] for upper level of care. Left Chest Pain Score (Numeric/FACES): 8 - Related Data Allergies/Adverse Reactions: Allergies Allergy/AdvReac Type Severity Reaction Status Date / Time morphine Allergy Itching Verified 09/02/18 11:32 barium contrast Allergy Airway Uncoded 06/09/18 15:52 Tightness Home Medications: Home Meds Fexofenadine [Loan] 180 mg PO DAILY PRN 01/06/18 [History] Lisinopril 2.5 mg PO BEDTIME 01/06/18 [History] Pantoprazole Sodium [Protonix] 40 mg PO BEDTIME 01/06/18 [History] tiZANidine [Zanaflex] 4 mg PO TID PRN 01/06/18 [History] Aspirin [Halfprin] 81 mg PO DAILY 11/27/18 [History] Butalbital/Aspirin/Caffeine [Fiorinal 50-325-40 MG] 2 cap PO Q6H PRN 11/27/18 [ History] Carvedilol [Coreg] 3.125 mg PO BID 11/27/18 [History] Nitroglycerin [Nitrostat] 0.4 mg SL ASDIRECTED 11/27/18 [History] Prochlorperazine Maleate [Compazine] 10 mg PO Q6H PRN 11/27/18 [History] SUMAtriptan Succinate [Imitrex] 50 mg PO ASDIRECTED 11/27/18 [History] traZODone HCl [Trazodone HCl] 50 mg PO BEDTIME PRN 11/27/18 [History] Past Medical History HEENT History: Reports: Allergic Rhinitis, Other (See Below) Other HEENT History: Wears glasse Cardiovascular History: Reports: Cardiomyopathy, Heart Failure Gastrointestinal History: Reports: Colon Polyp, Diverticulosis, GERD, Other ( See Below) Other Gastrointestinal History: Peutz Jagher syndrome Musculoskeletal History: Reports: Back Pain, Chronic Neurological History: Reports: Migraines, Other (See Below) Other Neuro History: states has "migraine syndrome." Psychiatric History: Reports: Anxiety, Depression - Infectious Disease History Infectious Disease History: Reports: Chicken Pox - Past Surgical History HEENT Surgical History: Reports: Adenoidectomy, Oral Surgery, Tonsillectomy Cardiovascular Surgical History: Reports: None GI Surgical History: Reports: Appendectomy, Cholecystectomy, Colonoscopy, EGD, Hernia, Abdominal Male Surgical History: Reports: Vasectomy Neurological Surgical History: Reports: Lumbar Spine Musculoskeletal Surgical History: Reports: Other (See Below) Other Musculoskeletal Surgeries/Procedures:: back surgery. 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 Exam - Exam Exam: See Below - Vital Signs Vital Signs: Last Vital Signs Temp 36.8 C 11/27/18 23:08 Pulse 71 11/27/18 23:08 Resp 16 11/27/18 23:08 BP 115/73 11/27/18 23:09 Pulse Ox 97 11/27/18 23:08 Weight: 90.718 kg - Exam General: Alert, Oriented, Cooperative, Mild Distress HEENT: Conjunctiva Clear, EACs Clear, EOMI, Hearing Intact, Mucosa Moist & Nadine , Nares Patent, Normal Nasal Septum, Posterior Pharynx Clear, Pupils Equal, Pupils Reactive Neck: Supple, Trachea Midline Lungs: Clear to Auscultation, Normal Respiratory Effort Cardiovascular: Regular Rate, Regular Rhythm GI/Abdominal Exam: Normal Bowel Sounds, Soft, Non-Tender, No Organomegaly, No Distention, No Abnormal Bruit (Male) Exam: Deferred Rectal (Males) Exam: Deferred Back Exam: Normal Inspection, Decreased Range of Motion Extremities: Normal Inspection, Normal Range of Motion, Non-Tender, No Pedal Edema, Normal Capillary Refill Peripheral Pulses: 2+: Posterior Tibial (L), Posterior Tibial (R), Dorsalis Pedis (L), Dorsalis Pedis (R) Skin: Warm, Dry, Intact, Other (tattoos on both arms) Neuro Extensive - Mental Status: Oriented x3, Normal Cognition, Memory Intact Neuro Extensive - Motor, Sensory, Reflexes: CN II-XII Intact, Normal Gait Psychiatric: Alert, Normal Affect, Normal Mood - Patient Data Lab Results Last 24 hrs: Laboratory Results - last 24 hr 11/27/18 11/27/18 11/27/18 Range/Units 16:40 16:40 16:40 WBC 7.37 (4.23-9.07) K/mm3 RBC 4.79 (4.63-6.08) M/mm3 Hgb 14.5 (13.7-17.5) gm/L Hct 42.3 (40.1-51.0) % MCV 88.3 (79.0-92.2) fl MCH 30.3 (25.7-32.2) pg MCHC 34.3 (32.2-35.5) g/dl RDW Std Deviation 42.8 (35.1-43.9) fL Plt Count 230 (163-337) K/mm3 MPV 9.5 (9.4-12.3) fl Neut % (Auto) 49.8 (34.0-67.9) % Lymph % (Auto) 35.0 (21.8-53.1) % [place] % (Auto) 9.8 (5.3-12.2) % Eos % (Auto) 4.9 (0.8-7.0) Baso % (Auto) 0.5 (0.1-1.2) % Neut # (Auto) 3.67 (1.78-5.38) K/mm3 Lymph # (Auto) 2.58 (1.32-3.57) K/mm3 [place] # (Auto) 0.72 (0.30-0.82) K/mm3 Eos # (Auto) 0.36 (0.04-0.54) K/mm3 Baso # (Auto) 0.04 (0.01-0.08) K/mm3 Sodium 140 (136-145) mEq/L Potassium 4.3 (3.5-5.1) mEq/L Chloride 106 (98-107) mEq/L Carbon Dioxide 26 (21-32) mEq/L Anion Gap 12.3 (5-15) BUN 20 H (7-18) mg/dL Creatinine 0.9 (0.7-1.3) mg/dL Est Cr Clr Drug Dosing 123.23 mL/min Estimated GFR (MDRD) > 60 (>60) mL/min BUN/Creatinine Ratio 22.2 H (14-18) Glucose 104 (74-106) mg/dL Calcium 8.6 (8.5-10.1) mg/dL Magnesium 1.9 (1.8-2.4) mg/dl Total Bilirubin 0.3 (0.2-1.0) mg/dL AST 19 (15-37) U/L ALT 47 (16-63) U/L Alkaline Phosphatase 81 (46-116) U/L Troponin I < 0.017 < 0.017 (0.00-0.056) ng/mL Total Protein 7.2 (6.4-8.2) g/dl Albumin 3.6 (3.4-5.0) g/dl Globulin 3.6 gm/dL Albumin/Globulin Ratio 1.0 (1-2) 11/27/18 11/27/18 Range/Units 19:31 21:41 WBC (4.23-9.07) K/mm3 RBC (4.63-6.08) M/mm3 Hgb (13.7-17.5) gm/L Hct (40.1-51.0) % MCV (79.0-92.2) fl MCH (25.7-32.2) pg MCHC (32.2-35.5) g/dl RDW Std Deviation (35.1-43.9) fL Plt Count (163-337) K/mm3 MPV (9.4-12.3) fl Neut % (Auto) (34.0-67.9) % Lymph % (Auto) (21.8-53.1) % [place] % (Auto) (5.3-12.2) % Eos % (Auto) (0.8-7.0) Baso % (Auto) (0.1-1.2) % Neut # (Auto) (1.78-5.38) K/mm3 Lymph # (Auto) (1.32-3.57) K/mm3 [place] # (Auto) (0.30-0.82) K/mm3 Eos # (Auto) (0.04-0.54) K/mm3 Baso # (Auto) (0.01-0.08) K/mm3 Sodium (136-145) mEq/L Potassium (3.5-5.1) mEq/L Chloride (98-107) mEq/L Carbon Dioxide (21-32) mEq/L Anion Gap (5-15) BUN (7-18) mg/dL Creatinine (0.7-1.3) mg/dL Est Cr Clr Drug Dosing mL/min Estimated GFR (MDRD) (>60) mL/min BUN/Creatinine Ratio (14-18) Glucose (74-106) mg/dL Calcium (8.5-10.1) mg/dL Magnesium (1.8-2.4) mg/dl Total Bilirubin (0.2-1.0) mg/dL AST (15-37) U/L ALT (16-63) U/L Alkaline Phosphatase (46-116) U/L Troponin I < 0.017 < 0.017 (0.00-0.056) ng/mL Total Protein (6.4-8.2) g/dl Albumin (3.4-5.0) g/dl Globulin gm/dL Albumin/Globulin Ratio (1-2) Result Diagrams: 11/28/18 04:45 11/28/18 04:45 Problem List Initiated/Reviewed/Updated: Yes Orders Last 24hrs: Active Orders 24 hr Category Date Time Status Patient Status [ADT] Routine ADT 11/27/18 20:14 Active Antiembolic Devices [RC] PER UNIT ROUTINE Care 11/27/18 21:29 Active Cardiac Monitoring [RC] . DIRECTED Care 11/27/18 16:20 Inactive Cardiac Monitoring [RC] CONTINUOUS Care 11/27/18 21:29 Active EKG 12 Lead [EKG Documentation Completion] [RC] AM Care 11/28/18 07:00 Active EKG Documentation Completion [RC] ASDIRECTED Care 11/27/18 18:27 Active Height and Weight [RC] 04 Care 11/27/18 21:28 Active Intake and Output [RC] 04,16 Care 11/27/18 21:28 Active Oxygen Therapy [RC] PRN Care 11/27/18 21:28 Active RT Aerosol Therapy [RC] ASDIRECTED Care 11/27/18 21:30 Active Up ad Lina [RC] BID Care 11/27/18 21:28 Active VTE/DVT Education [RC] DAILY Care 11/27/18 21:28 Active Vital Signs [RC] Q4HR Care 11/27/18 21:28 Active Consult to Case Management/Professor Computer Science [CONS] Cons 11/27/18 21:28 Active Routine Heart Healthy Diet [DIET] Diet 11/27/18 Dinner Active Chest 1V Frontal [CR] Stat Exams 11/27/18 16:21 Taken BASIC METABOLIC PANEL,BMP [CHEM] AM Lab 11/28/18 05:11 Ordered CBC WITH AUTO DIFF [HEME] AM Lab 11/28/18 05:11 Ordered LIPID PANEL [CHEM] AM Lab 11/28/18 05:11 Ordered MAGNESIUM [CHEM] AM Lab 11/28/18 05:11 Ordered TROPONIN I [CHEM] Q8H Lab 11/28/18 05:28 Ordered TROPONIN I [CHEM] Q8H Lab 11/28/18 13:28 Ordered Acetaminophen [Tylenol] Med 11/27/18 21:28 Active 650 mg PO Q4H PRN Acetaminophen/Butalbital/Caff [Fioricet 325-50-40 MG] Med 11/27/18 21:27 Active 2 tab PO Q6H PRN Acetaminophen/HYDROcodone [[place] 325-5 MG] Med 11/27/18 21:28 Active 1 tab PO Q4H PRN Albuterol/Ipratropium [DuoNeb 3.0-0.5 MG/3 ML] Med 11/27/18 22:00 Active 3 ml NEB Q4HRRT PRN Aspirin [Halfprin] Med 11/28/18 09:00 Active 81 mg PO DAILY Bisacodyl [Dulcolax] Med 11/27/18 21:28 Active 5 mg PO DAILY PRN Carvedilol [Coreg] Med 11/27/18 22:30 Active 3.125 mg PO BID Docusate Sodium [Colace] Med 11/27/18 21:28 Active 100 mg PO BID PRN Docusate Sodium/Sennosides [Senna Plus] Med 11/27/18 21:28 Active 1 tab PO BID PRN HYDROmorphone [Dilaudid] Med 11/27/18 21:28 Active 0.25 mg IVPUSH Q2H PRN LORazepam [Ativan] Med 11/27/18 21:28 Active 1 mg IV Q6H PRN Lisinopril [Prinivil] Med 11/27/18 22:26 Active 2.5 mg PO BEDTIME Loratadine [Claritin] Med 11/28/18 09:00 Active 180 mg PO DAILY PRN Nitroglycerin [Nitrostat] Med 11/27/18 21:30 Pending 0.4 mg SL ASDIRECTED Ondansetron [Zofran] Med 11/27/18 21:28 Active 4 mg IV Q6H PRN Pantoprazole [ProTONIX] Med 11/27/18 22:28 Active 40 mg PO BEDTIME Polyethylene Glycol 3350 [MiraLAX] Med 11/27/18 21:28 Active 17 gm PO DAILY PRN Prochlorperazine [Compazine] Med 11/27/18 21:27 Active 10 mg PO Q6H PRN Promethazine [Phenergan] 6.25 mg Med 11/27/18 21:28 Active Sodium Chloride 0.9% [Normal Saline] 50 ml IV Q6H SUMAtriptan [Imitrex] Med 11/27/18 21:30 Active 50 mg PO ONETIME PRN Sodium Chloride 0.9% [Saline Flush] Med 11/27/18 16:20 Active 10 ml FLUSH ASDIRECTED PRN Temazepam [Restoril] Med 11/27/18 21:28 Active 15 mg PO BEDTIME PRN tiZANidine [Zanaflex] Med 11/27/18 21:27 Active 4 mg PO TID PRN traZODone HCl [Trazodone HCl] Med 11/27/18 21:27 Active 50 mg PO BEDTIME PRN Peripheral IV Insertion Adult [OM.PC] Stat Oth 11/27/18 16:20 Ordered Sequential Compression Device [OM.PC] Per Unit Routine Oth 11/27/18 21:29 Ordered Resuscitation Status Routine Resus Stat 11/27/18 21:28 Ordered EKG 12 Lead [EK] Stat Ther 11/27/18 18:27 Ordered Medication Orders Acetaminophen (Tylenol) 650 mg PO Q4H PRN PRN Reason: Pain (Mild 1-3)/fever Acetaminophen/Butalbital/Caffeine (Fioricet 325-50-40 Mg) 2 tab PO Q6H PRN PRN Reason: Headache/Pain Hydrocodone Bitart/Acetaminophen ([place] 325-5 Mg) 1 tab PO Q4H PRN PRN Reason: Pain (moderate 4-6) Last Admin: 11/27/18 22:18 Dose: 1 tab Albuterol/Ipratropium (Duoneb 3.0-0.5 Mg/3 Ml) 3 ml NEB Q4HRRT PRN PRN Reason: Shortness Of Breath/wheezing Aspirin (Halfprin) 81 mg PO DAILY JUVENAL Bisacodyl (Dulcolax) 5 mg PO DAILY PRN PRN Reason: Constipation Carvedilol (Coreg) 3.125 mg PO BID [facility] Last Admin: 11/27/18 23:08 Dose: 3.125 mg Docusate Sodium (Colace) 100 mg PO BID PRN PRN Reason: Constipation Hydromorphone HCl (Dilaudid) 0.25 mg IVPUSH Q2H PRN PRN Reason: Pain (severe 7-10) Last Admin: 11/27/18 22:16 Dose: 0.25 mg Promethazine HCl 6.25 mg/ (Sodium Chloride) 50.25 mls @ 100 mls/hr IV Q6H PRN PRN Reason: Nausea/Vomiting Lisinopril (Prinivil) 2.5 mg PO BEDTIME [facility] Last Admin: 11/27/18 23:09 Dose: 2.5 mg Loratadine (Claritin) 180 mg PO DAILY PRN PRN Reason: Allergies Lorazepam (Ativan) 1 mg IV Q6H PRN PRN Reason: Anxiety Non-Formulary Medication (Nitroglycerin [Nitrostat]) 0.4 mg SL ASDIRECTED JUVENAL Non-Formulary Medication (Trazodone Hcl [Trazodone Hcl]) 50 mg PO BEDTIME PRN PRN Reason: Insomnia Ondansetron HCl (Zofran) 4 mg IV Q6H PRN PRN Reason: Nausea/Vomiting Pantoprazole Sodium (Protonix) 40 mg PO BEDTIME JUVENAL Last Admin: 11/27/18 23:09 Dose: 40 mg Polyethylene Glycol (Miralax) 17 gm PO DAILY PRN PRN Reason: Constipation Prochlorperazine Maleate (Compazine) 10 mg PO Q6H PRN PRN Reason: Nausea/Vomiting Senna/Docusate Sodium (Senna Plus) 1 tab PO BID PRN PRN Reason: Constipation Sodium Chloride (Saline Flush) 10 ml FLUSH ASDIRECTED PRN PRN Reason: Keep Vein Open Last Admin: 11/27/18 16:40 Dose: 10 ml Sumatriptan Succinate (Imitrex) 50 mg PO ONETIME PRN PRN Reason: HEADACHE Temazepam (Restoril) 15 mg PO BEDTIME PRN PRN Reason: Sleep Last Admin: 11/27/18 23:12 Dose: 15 mg Tizanidine HCl (Zanaflex) 4 mg PO TID PRN PRN Reason: Pain Assessment/Plan Comment:: Assessment: Acute: Chest Pain r/o ACS - Risk factors: Cardiomyopathy and HF with Unknown EF - Chest pain at rest with radiation to shoulder, jaw and left arm - Pressure like in nature but now heaviness - Serial Troponin and EKGs x2: all negative - [facility]: recommends admit to [facility] and if positive troponin to ship patient ot hem in [place] - serial troponin, lipid panel and EKG in AM - Stress test not available on weekends Chronic: AR, Cardiomyopathy, HF with Unknown EF, Hx/o Colon Polyp, Diverticulosis, GERD, Peutz Jeghers Syndrome, Chronic Back Pain, Migraines, Anxiety and Depression Plan: Admit to [facility] with Tele Routine AM labs AHA diet CP work up DVT/GI prophylaxis RT/OT/PT to asses and treat SW/CM for d/c planning Code status: full Additional orders as above - Mortality Measure Prognosis:: Good
[2018-11-28] MEDS: Acetaminophen/HYDROcodone 325-5 MG Tab PO PRN ×2 (02:23→08:24)
[2018-11-28] MEDS: HYDROmorphone 0.5 MG/0.5 ML Syringe IVPUSH PRN ×2 (02:24→06:35)
[2018-11-28] MEDS ORDERED: Nitroglycerin 0.4 MG Tab.SL SL PRN (05:10)
[2018-11-28] MEDS ORDERED: Pantoprazole 40 MG Tab.CR PO SCH (07:00)
[2018-11-28] MEDS: Carvedilol 3.125 MG Tab PO SCH (08:23)
[2018-11-28] MEDS ORDERED: traZODone 50 MG Tab PO PRN (08:59)
[2018-11-28] MEDS ORDERED: Carvedilol 3.125 MG Tab PO SCH (09:00)
[2018-11-28] MEDS ORDERED: Loratadine 10 MG Tab PO PRN (09:00)
[2018-11-28] MEDS ORDERED: Aspirin 81 MG Tab.EC PO SCH (09:00)
[2018-11-28] MEDS ORDERED: Lisinopril 2.5 MG Tab PO SCH (09:00)
[2018-11-28] MEDS ORDERED: diphenhydrAMINE 50 MG/ML SDV IVPUSH ONE (09:41)
[2018-11-28] MEDS ORDERED: Ketorolac 30 MG/ML SDV IVPUSH ONE (09:42)
[2018-11-28] MEDS ORDERED: Promethazine 25 MG in Sodium Chloride 0.9% 50 ML IV ONE (09:42)
--- NOTE | 2018-11-28 12:30 | PCM.DCSUM1 ---
Discharge Summary - Hospital Course Brief History: This is a 48 yo white male with past medical hx/o AR, Cardiomyopathy, HF with Unknown EF, Hx/o Colon Polyp, Diverticulosis, GERD, Peutz Jeghers Syndrome, Chronic Back Pain, Migraines, Anxiety and Depression who comes in with complaints of chest pain at rest that started at about 1300 yesterday. He describes it as pressure like with radiation to his shoulder, jaw and left arm. He took nitro x 2 and a baby ASA but w/o any improvement. Patient had a hx/o cardiomyopathy in 2013 with an EF of as low as 20%. He had a heart cath about a year ago and it was clean according to him. His initial work up in ED was unremarkable. Hi serial troponin and EKGs were negative. His cased was discussed with a [employer] roofer assistant and we were advised to keep him for observation and do chest pain work up. Diagnosis: Stroke: No Modified [place]iney Scale: No Symptoms at All Modified Austin Scale Score: 0 - Discharge Data Discharge Date: 11/28/18 Discharge Disposition: DC/Tfer to Acute Hospital 02 Condition: Good - Discharge Diagnosis/Problem(s) (1) Chest pain SNOMED Code(s): 99363266 ICD Code: R07.9 - CHEST PAIN, UNSPECIFIED Status: Acute Qualifiers: Chest pain type: precordial pain Qualified Code(s): R07.2 - Precordial pain - Patient Summary/Data Operative Procedure(s) Performed: None Complications: None Consults: Consultations 11/27/18 21:28 Consult to Case Management/Gps Navigation Installer [CONS] Routine Labs Pending at D/C: None Recommended Follow-up Testing/Procedures: None Planned Operative Procedure(s) after DC: None Hospital Course: Patient was primarily admitted for chest pain r/o ACS. All his basic cardiac work up was negative to include serial troponin. Unfortunately, he continues to have persistent chest heaviness and rates it at 6/10. Hence, we decided to transfer him to [facility] for further cardiac evaluation. He was admitted under the services of Dr. Elizondo, hospitalist attending. - Patient Instructions Diet: Heart Healthy Diet Activity: As Tolerated Driving: Do Not Drive Showering/Bathing: May Shower Notify Provider of: Fever, Increased Pain, Swelling and Redness, Nausea and/or Vomiting Other/Special Instructions: - Transfer to [facility] under the services of Dr. Elizondo, Hospitalist attending - Discharge Plan *PRESCRIPTION DRUG MONITORING PROGRAM REVIEWED*: Not Applicable *COPY OF PRESCRIPTION DRUG MONITORING REPORT IN PATIENT HUY: Not Applicable Home Medications: Home Meds Fexofenadine [Loan] 180 mg PO DAILY PRN 01/06/18 [History] Lisinopril 2.5 mg PO BEDTIME 01/06/18 [History] Pantoprazole Sodium [Protonix] 40 mg PO BEDTIME 01/06/18 [History] tiZANidine [Zanaflex] 4 mg PO TID PRN 01/06/18 [History] Aspirin [Halfprin] 81 mg PO DAILY 11/27/18 [History] Butalbital/Aspirin/Caffeine [Fiorinal 50-325-40 MG] 2 cap PO Q6H PRN 11/27/18 [ History] Carvedilol [Coreg] 3.125 mg PO BID 11/27/18 [History] Nitroglycerin [Nitrostat] 0.4 mg SL ASDIRECTED 11/27/18 [History] Prochlorperazine Maleate [Compazine] 10 mg PO Q6H PRN 11/27/18 [History] SUMAtriptan Succinate [Imitrex] 50 mg PO ASDIRECTED 11/27/18 [History] traZODone HCl [Trazodone HCl] 50 mg PO BEDTIME PRN 11/27/18 [History] Referrals: Cheryl Coulter, TV HOST [Primary Care Provider] - - Discharge Summary/Plan Comment DC Time >30 min.: Yes (45 mins) Discharge Summary/Plan Comment: Transfer to [facility] for cardiac services. He will be admitted under the hospitalist services under the care of Dr. Elizondo, attending. - General Info Date of Service: 11/28/18 Admission Dx/Problem (Free Text: Admission Diagnosis/Problem Admission Diagnosis/Problem Chest pain Subjective Update: Follow Up Functional Status: Reports: Pain Controlled, Tolerating Diet, Ambulating, Urinating - Review of Systems General: Denies: Fever, Weakness, Fatigue, Malaise, Chills HEENT: Reports: No Symptoms Pulmonary: Denies: Shortness of Breath Cardiovascular: Reports: Chest Pain, Other (heaviness). Denies: Palpitations, Dyspnea on Exertion, Orthopnea, Lightheadedness Gastrointestinal: Denies: Abdominal Pain, Nausea, Vomiting Genitourinary: Reports: No Symptoms Musculoskeletal: Reports: No Symptoms Skin: Denies: Pallor, Diaphoresis, Dryness, Pruritis Neurological: Denies: Trouble Speaking, Weakness, Gait Disturbance Psychiatric: Denies: Depression, Anxiety, Agitation, Cravings, Suicidal Ideation - Patient Data Vitals - Most Recent: Last Vital Signs Temp 36.4 C 11/28/18 08:21 Pulse 73 11/28/18 08:23 Resp 20 11/28/18 08:21 BP 114/71 11/28/18 08:23 Pulse Ox 100 11/28/18 08:21 Weight - Most Recent: 91.626 kg I&O - Last 24 hours: Intake & Output 11/27/18 11/28/18 11/28/18 22:59 06:59 14:59 Intake Total 700 240 Output Total 825 Balance -125 240 Lab Results - Last 24 hrs: Laboratory Results - last 24 hr 11/27/18 11/27/18 11/27/18 Range/Units 16:40 16:40 16:40 WBC 7.37 (4.23-9.07) K/mm3 RBC 4.79 (4.63-6.08) M/mm3 Hgb 14.5 (13.7-17.5) gm/L Hct 42.3 (40.1-51.0) % MCV 88.3 (79.0-92.2) fl MCH 30.3 (25.7-32.2) pg MCHC 34.3 (32.2-35.5) g/dl RDW Std Deviation 42.8 (35.1-43.9) fL Plt Count 230 (163-337) K/mm3 MPV 9.5 (9.4-12.3) fl Neut % (Auto) 49.8 (34.0-67.9) % Lymph % (Auto) 35.0 (21.8-53.1) % [place] % (Auto) 9.8 (5.3-12.2) % Eos % (Auto) 4.9 (0.8-7.0) Baso % (Auto) 0.5 (0.1-1.2) % Neut # (Auto) 3.67 (1.78-5.38) K/mm3 Lymph # (Auto) 2.58 (1.32-3.57) K/mm3 [place] # (Auto) 0.72 (0.30-0.82) K/mm3 Eos # (Auto) 0.36 (0.04-0.54) K/mm3 Baso # (Auto) 0.04 (0.01-0.08) K/mm3 Sodium 140 (136-145) mEq/L Potassium 4.3 (3.5-5.1) mEq/L Chloride 106 (98-107) mEq/L Carbon Dioxide 26 (21-32) mEq/L Anion Gap 12.3 (5-15) BUN 20 H (7-18) mg/dL Creatinine 0.9 (0.7-1.3) mg/dL Est Cr Clr Drug Dosing 123.23 mL/min Estimated GFR (MDRD) > 60 (>60) mL/min BUN/Creatinine Ratio 22.2 H (14-18) Glucose 104 (74-106) mg/dL Calcium 8.6 (8.5-10.1) mg/dL Magnesium 1.9 (1.8-2.4) mg/dl Total Bilirubin 0.3 (0.2-1.0) mg/dL AST 19 (15-37) U/L ALT 47 (16-63) U/L Alkaline Phosphatase 81 (46-116) U/L Troponin I < 0.017 < 0.017 (0.00-0.056) ng/mL Total Protein 7.2 (6.4-8.2) g/dl Albumin 3.6 (3.4-5.0) g/dl Globulin 3.6 gm/dL Albumin/Globulin Ratio 1.0 (1-2) Triglycerides (<150) mg/dL Cholesterol (<200) mg/dL LDL Cholesterol Direct (<100) mg/dL HDL Cholesterol (40-59) mg/dL 11/27/18 11/27/18 11/28/18 Range/Units 19:31 21:41 04:45 WBC 7.60 (4.23-9.07) K/mm3 RBC 4.74 (4.63-6.08) M/mm3 Hgb 14.5 (13.7-17.5) gm/L Hct 42.7 (40.1-51.0) % MCV 90.1 (79.0-92.2) fl MCH 30.6 (25.7-32.2) pg MCHC 34.0 (32.2-35.5) g/dl RDW Std Deviation 43.5 (35.1-43.9) fL Plt Count 229 (163-337) K/mm3 MPV 9.7 (9.4-12.3) fl Neut % (Auto) 43.8 (34.0-67.9) % Lymph % (Auto) 41.2 (21.8-53.1) % [place] % (Auto) 9.5 (5.3-12.2) % Eos % (Auto) 4.7 (0.8-7.0) Baso % (Auto) 0.7 (0.1-1.2) % Neut # (Auto) 3.33 (1.78-5.38) K/mm3 Lymph # (Auto) 3.13 (1.32-3.57) K/mm3 [place] # (Auto) 0.72 (0.30-0.82) K/mm3 Eos # (Auto) 0.36 (0.04-0.54) K/mm3 Baso # (Auto) 0.05 (0.01-0.08) K/mm3 Sodium (136-145) mEq/L Potassium (3.5-5.1) mEq/L Chloride (98-107) mEq/L Carbon Dioxide (21-32) mEq/L Anion Gap (5-15) BUN (7-18) mg/dL Creatinine (0.7-1.3) mg/dL Est Cr Clr Drug Dosing mL/min Estimated GFR (MDRD) (>60) mL/min BUN/Creatinine Ratio (14-18) Glucose (74-106) mg/dL Calcium (8.5-10.1) mg/dL Magnesium (1.8-2.4) mg/dl Total Bilirubin (0.2-1.0) mg/dL AST (15-37) U/L ALT (16-63) U/L Alkaline Phosphatase (46-116) U/L Troponin I < 0.017 < 0.017 (0.00-0.056) ng/mL Total Protein (6.4-8.2) g/dl Albumin (3.4-5.0) g/dl Globulin gm/dL Albumin/Globulin Ratio (1-2) Triglycerides (<150) mg/dL Cholesterol (<200) mg/dL LDL Cholesterol Direct (<100) mg/dL HDL Cholesterol (40-59) mg/dL 11/28/18 11/28/18 Range/Units 04:45 04:45 WBC (4.23-9.07) K/mm3 RBC (4.63-6.08) M/mm3 Hgb (13.7-17.5) gm/L Hct (40.1-51.0) % MCV (79.0-92.2) fl MCH (25.7-32.2) pg MCHC (32.2-35.5) g/dl RDW Std Deviation (35.1-43.9) fL Plt Count (163-337) K/mm3 MPV (9.4-12.3) fl Neut % (Auto) (34.0-67.9) % Lymph % (Auto) (21.8-53.1) % [place] % (Auto) (5.3-12.2) % Eos % (Auto) (0.8-7.0) Baso % (Auto) (0.1-1.2) % Neut # (Auto) (1.78-5.38) K/mm3 Lymph # (Auto) (1.32-3.57) K/mm3 [place] # (Auto) (0.30-0.82) K/mm3 Eos # (Auto) (0.04-0.54) K/mm3 Baso # (Auto) (0.01-0.08) K/mm3 Sodium 138 (136-145) mEq/L Potassium 4.1 (3.5-5.1) mEq/L Chloride 102 (98-107) mEq/L Carbon Dioxide 29 (21-32) mEq/L Anion Gap 11.1 (5-15) BUN 17 (7-18) mg/dL Creatinine 0.8 (0.7-1.3) mg/dL Est Cr Clr Drug Dosing 138.64 mL/min Estimated GFR (MDRD) > 60 (>60) mL/min BUN/Creatinine Ratio 21.3 H (14-18) Glucose 107 H (74-106) mg/dL Calcium 8.6 (8.5-10.1) mg/dL Magnesium 1.9 (1.8-2.4) mg/dl Total Bilirubin (0.2-1.0) mg/dL AST (15-37) U/L ALT (16-63) U/L Alkaline Phosphatase (46-116) U/L Troponin I < 0.017 (0.00-0.056) ng/mL Total Protein (6.4-8.2) g/dl Albumin (3.4-5.0) g/dl Globulin gm/dL Albumin/Globulin Ratio (1-2) Triglycerides 162 H (<150) mg/dL Cholesterol 167 (<200) mg/dL LDL Cholesterol Direct 96 (<100) mg/dL HDL Cholesterol 48.0 (40-59) mg/dL Med Orders - Current: Current Medications Acetaminophen (Tylenol) 650 mg PO Q4H PRN PRN Reason: Pain (Mild 1-3)/fever Last Admin: 11/28/18 01:34 Dose: 650 mg Acetaminophen/Butalbital/Caffeine (Fioricet 325-50-40 Mg) 2 tab PO Q6H PRN PRN Reason: Headache/Pain Last Admin: 11/28/18 03:29 Dose: 2 tab Hydrocodone Bitart/Acetaminophen ([place] 325-5 Mg) 1 tab PO Q4H PRN PRN Reason: Pain (moderate 4-6) Last Admin: 11/28/18 08:24 Dose: 1 tab Albuterol/Ipratropium (Duoneb 3.0-0.5 Mg/3 Ml) 3 ml NEB Q4HRRT PRN PRN Reason: Shortness Of Breath/wheezing Aspirin (Halfprin) 81 mg PO DAILY [facility] Last Admin: 11/28/18 08:23 Dose: 81 mg Bisacodyl (Dulcolax) 5 mg PO DAILY PRN PRN Reason: Constipation Carvedilol (Coreg) 3.125 mg PO BID [facility] Last Admin: 11/28/18 08:23 Dose: 3.125 mg Docusate Sodium (Colace) 100 mg PO BID PRN PRN Reason: Constipation Hydromorphone HCl (Dilaudid) 0.25 mg IVPUSH Q2H PRN PRN Reason: Pain (severe 7-10) Last Admin: 11/28/18 06:35 Dose: 0.25 mg Promethazine HCl 6.25 mg/ (Sodium Chloride) 50.25 mls @ 100 mls/hr IV Q6H PRN PRN Reason: Nausea/Vomiting Lisinopril (Prinivil) 2.5 mg PO BEDTIME [facility] Last Admin: 11/27/18 23:09 Dose: 2.5 mg Loratadine (Claritin) 180 mg PO DAILY PRN PRN Reason: Allergies Lorazepam (Ativan) 1 mg IV Q6H PRN PRN Reason: Anxiety Nitroglycerin (Nitrostat) 0.4 mg SL Q5M PRN PRN Reason: Chest Pain Ondansetron HCl (Zofran) 4 mg IV Q6H PRN PRN Reason: Nausea/Vomiting Pantoprazole Sodium (Protonix) 40 mg PO BEDTIME [facility] Last Admin: 11/27/18 23:09 Dose: 40 mg Polyethylene Glycol (Miralax) 17 gm PO DAILY PRN PRN Reason: Constipation Prochlorperazine Maleate (Compazine) 10 mg PO Q6H PRN PRN Reason: Nausea/Vomiting Senna/Docusate Sodium (Senna Plus) 1 tab PO BID PRN PRN Reason: Constipation Sodium Chloride (Saline Flush) 10 ml FLUSH ASDIRECTED PRN PRN Reason: Keep Vein Open Last Admin: 11/27/18 16:40 Dose: 10 ml Sumatriptan Succinate (Imitrex) 50 mg PO ONETIME PRN PRN Reason: HEADACHE Last Admin: 11/28/18 05:30 Dose: 50 mg Temazepam (Restoril) 15 mg PO BEDTIME PRN PRN Reason: Sleep Last Admin: 11/27/18 23:12 Dose: 15 mg Tizanidine HCl (Zanaflex) 4 mg PO TID PRN PRN Reason: Pain Trazodone HCl (Trazodone) 50 mg PO BEDTIME PRN PRN Reason: Insomnia Discontinued Medications Albuterol/Ipratropium (Duoneb 3.0-0.5 Mg/3 Ml) 3 ml NEB Q4H PRN PRN Reason: Shortness Of Breath/wheezing Aspirin (Aspirin) 324 mg PO ONETIME ONE Stop: 11/27/18 16:21 Last Admin: 11/27/18 17:02 Dose: 324 mg Diphenhydramine HCl (Benadryl) 25 mg IVPUSH ONETIME ONE Stop: 11/28/18 09:42 Last Admin: 11/28/18 10:34 Dose: 25 mg Hydromorphone HCl (Dilaudid) 1 mg IVPUSH ONETIME ONE Stop: 11/27/18 16:22 Last Admin: 11/27/18 16:51 Dose: 1 mg Hydromorphone HCl (Dilaudid) 1 mg IVPUSH ONETIME ONE Stop: 11/27/18 18:27 Last Admin: 11/27/18 18:34 Dose: 1 mg Promethazine HCl 25 mg/ Sodium (Chloride) 51 mls @ 100 mls/hr IV ONETIME ONE Stop: 11/28/18 10:12 Last Admin: 11/28/18 10:33 Dose: 100 mls/hr Ketorolac Tromethamine (Toradol) 30 mg IVPUSH ONETIME ONE Stop: 11/28/18 09:43 Last Admin: 11/28/18 10:33 Dose: 30 mg Non-Formulary Medication (Trazodone Hcl [Trazodone Hcl]) 50 mg PO BEDTIME PRN PRN Reason: Insomnia Ondansetron HCl (Zofran) 4 mg IVPUSH ONETIME ONE Stop: 11/27/18 16:22 Last Admin: 11/27/18 16:49 Dose: 4 mg - Exam General: Reports: Alert, Oriented, Cooperative, No Acute Distress HEENT: Reports: Pupils Equal, Pupils Reactive, EOMI, Mucous Membr. Moist/[place]ck: Reports: Supple Lungs: Reports: Clear to Auscultation, Normal Respiratory Effort Cardiovascular: Reports: Regular Rate, Regular Rhythm GI/Abdominal Exam: Normal Bowel Sounds, Soft, Non-Tender, No Organomegaly, No Distention, No Abnormal Bruit, No Mass (Male) Exam: Deferred Rectal (Males) Exam: Deferred Back Exam: Reports: Normal Inspection, Full Range of Motion Extremities: Normal Inspection, Normal Range of Motion, Non-Tender, No Pedal Edema, Normal Capillary Refill Skin: Reports: Warm, Dry, Intact Neurological: Reports: No New Focal Deficit Psy/Mental Status: Reports: Alert, Normal Affect, Normal Mood
--- NOTE | 2018-11-30 07:33 | CR ---
Chest: Portable view of the chest was obtained. Comparison: Prior chest x-ray of 06/09/18. Heart size and mediastinum are normal. Lungs are clear. Bony structures are grossly intact. Surgical clips are seen from prior cholecystectomy within the upper abdomen. Impression: 1. Nothing acute is appreciated on portable chest x-ray. Diagnostic code #1
== END 2018-11-28 13:25 ==
LOC: JD.ED 15:57 → JD.MS 20:14
PROVIDERS: ADMIT Internal Medicine; ATTEND Internal Medicine
DX: R07.2 Precordial pain (principal); I50.9 Heart failure, unspecified; I42.9 Cardiomyopathy, unspecified; K21.9 Gastro-esophageal reflux disease without esophagitis; F41.9 Anxiety disorder, unspecified; F32.9 Major depressive disorder, single episode, unspecified; Q85.8 Other phakomatoses, not elsewhere classified; G43.909 Migraine, unspecified, not intractable, without status migrainosus; G89.29 Other chronic pain; M54.9 Dorsalgia, unspecified; Z88.5 Allergy status to narcotic agent; Z91.041 Radiographic dye allergy status; Z79.82 Long term (current) use of aspirin; Z79.899 Other long term (current) drug therapy
CPT/HCPCS: 36415; 71045; 80048; 80053; 80061; 83735; 84484; 85025; 93005; 96374; 96375; 96376; 99285; A9270; J1170; J1200; J1885; J2405; J2550; J7050; 93010; 96365; 99284; G0378

== ENCOUNTER 2019-01-08 13:18 | Emergency (ER) | payer BC ==
[2019-01-08] MEDS ORDERED: Dextrose 5%-0.9% NaCl 1,000 ML IV SCH (13:45)
[2019-01-08] MEDS ORDERED: Ketorolac 30 MG/ML SDV IVPUSH SCH (13:45)
--- NOTE | 2019-01-08 13:48 | EDM.PDOC ---
ED HPI GENERAL MEDICAL PROBLEM - General Chief Complaint: Chest Pain Stated Complaint: CHEST PAIN AND SOB Time Seen by Provider: 01/08/19 13:43 Source of Information: Reports: Patient History Limitations: Reports: No Limitations - History of Present Illness INITIAL COMMENTS - FREE TEXT/NARRATIVE: 48-year-old male presents to the ED with diffuse lower anterior chest pain that radiates towards the midaxillary line. He states he's had this several times in the past. It is pleuritic in component in terms that it's worsened by deep breathing. Describes it as a heaviness like a weighted vest on his left side of his chest. Patient has a known cardiomyopathy diagnosed in 2013 presumed to be viral. He was worked up thoroughly in the [facility] with no other diagnoses made. He's never been an alcoholic. Last echocardiogram suggested a ejection fraction around 45%. Within the last 2 months he is also had cardiac review with Dr. Drew in [place] and had a normal angiogram last time he had similar type pain. As far as we can ascertain his echo did not reveal any fluid within the pericardium. He denies cough, fever, chills or orthopnea. States he didn't sleep well last night due to the pain in his left anterior chest. Note the patient did not take any Aleve or Motrin for the pain . He took 2 nitroglycerin 0.4 mg tablets this morning without any relief and likely no headache. Blood pressure on arrival was 111/70. Onset: Gradual Onset Date: 01/07/19 Duration: Day(s):, Getting Worse, Heavy (Described as a pressure heaviness left precordial chest mostly lower ribs rating towards the midaxillary line.) Location: Reports: Chest (Lower anterior left chest.) Quality: Reports: Pressure, Other Severity: Moderate (Heaviness. 4-5 out of 10.) Improves with: Reports: None Worsens with: Reports: Other Context: Denies: Activity, Exercise (Deep breathing makes it worse.), Lifting, Sick Contact, Trauma, Other Associated Symptoms: Reports: Chest Pain, Malaise, Weakness. 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 below) (None.) Left Chest Pain Score (Numeric/FACES): 9 - Related Data Allergies Allergy/AdvReac Type Severity Reaction Status Date / Time morphine Allergy Itching Verified 09/02/18 11:32 barium contrast Allergy Airway Uncoded 06/09/18 15:52 Tightness Home Meds: Home Meds Fexofenadine [Loan] 180 mg PO DAILY PRN 01/06/18 [History] Lisinopril 2.5 mg PO BEDTIME 01/06/18 [History] Pantoprazole Sodium [Protonix] 40 mg PO BEDTIME 01/06/18 [History] tiZANidine [Zanaflex] 4 mg PO TID PRN 01/06/18 [History] Aspirin [Halfprin] 81 mg PO DAILY 11/27/18 [History] Butalbital/Aspirin/Caffeine [Fiorinal 50-325-40 MG] 2 cap PO Q6H PRN 11/27/18 [ History] Carvedilol [Coreg] 3.125 mg PO BID 11/27/18 [History] Nitroglycerin [Nitrostat] 0.4 mg SL ASDIRECTED 11/27/18 [History] SUMAtriptan Succinate [Imitrex] 50 mg PO ASDIRECTED 11/27/18 [History] traZODone HCl [Trazodone HCl] 50 mg PO BEDTIME PRN 11/27/18 [History] oxyCODONE HCl/Acetaminophen [Percocet 5-325 mg Tablet] 1 - 2 each PO Q4H PRN # 20 tablet 01/08/19 [Rx] predniSONE [Deltasone] 20 mg PO ASDIRECTED #16 tablet 01/08/19 [Rx] Past Medical History HEENT History: Reports: Allergic Rhinitis, Other (See Below) Other HEENT History: Wears glasse Cardiovascular History: Reports: Cardiomyopathy, Heart Failure Gastrointestinal History: Reports: Colon Polyp, Diverticulosis, GERD, Other ( See Below) Other 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 So far none of them have been malignant. Musculoskeletal History: Reports: Back Pain, Chronic Neurological History: Reports: Migraines, Other (See Below) Other Neuro History: states has "migraine syndrome." Psychiatric History: Reports: Anxiety, Depression - Infectious Disease History Infectious Disease History: Reports: Chicken Pox - Past Surgical History HEENT Surgical History: Reports: Adenoidectomy, Oral Surgery, Tonsillectomy Cardiovascular Surgical History: Reports: None GI Surgical History: Reports: Appendectomy, Cholecystectomy, Colonoscopy, EGD, Hernia, Abdominal Male Surgical History: Reports: Vasectomy Neurological Surgical History: Reports: Lumbar Spine Musculoskeletal Surgical History: Reports: Other (See Below) Other Musculoskeletal Surgeries/Procedures:: back surgery. Social & Family History - Family History Family Medical History: Noncontributory - Caffeine Use Caffeine Use: Reports: None - Living Situation & Occupation Living situation: Reports: , with Family (Daughter) Occupation: Employed ([employer]) ED ROS GENERAL - Review of Systems Review Of Systems: See Below Constitutional: Reports: Malaise, Fatigue, Decreased Appetite (From not sleeping last night.). Denies: Fever, Chills HEENT: Reports: No Symptoms Respiratory: Reports: Pleuritic Chest Pain. Denies: Shortness of Breath, Wheezing, Cough, Sputum Cardiovascular: Reports: Chest Pain (Left precordial chest.), Lightheadedness. Denies: Blood Pressure Problem, Dyspnea on Exertion, Edema, Orthopnea, Palpitations Endocrine: Reports: Fatigue GI/Abdominal: Reports: No Symptoms : Reports: No Symptoms Musculoskeletal: Reports: No Symptoms Skin: Reports: No Symptoms Neurological: Reports: No Symptoms Psychiatric: Reports: No Symptoms Hematologic/Lymphatic: Reports: No Symptoms Immunologic: Reports: No Symptoms ED EXAM, GENERAL - Physical Exam Exam: See Below Exam Limited By: No Limitations General Appearance: Alert, WD/WN, Anxious, Mild Distress, Other (He appears to be moderate degree of discomfort. Vital signs show temperature 36.1 which is inaccurate. Pulse of 74. Respiratory is 24-28/m. Perhaps mildly hyperventilating. Sats are 100% on room air. BP 111/70.) Eye Exam: Bilateral Eye: Normal Inspection Throat/Mouth: Normal Inspection, Normal Lips, Normal Teeth, Normal Oropharynx Head: Atraumatic, Normocephalic Neck: Normal Inspection, Supple, Non-Tender, Full Range of Motion. No: Carotid Bruit, Lymphadenopathy (L), Lymphadenopathy (R) Respiratory/Chest: No Respiratory Distress, Lungs Clear, Normal Breath Sounds, No Accessory Muscle Use, Chest Non-Tender, Other Cardiovascular: Normal Peripheral Pulses (I could elicit no chest wall tenderness on palpation.), Regular Rate, Rhythm, No Edema, No Gallop, No Murmur , No Rub, Other (Heart sounds did not sound muffled.) Peripheral Pulses: 3+: Carotid (L), Carotid (R), Posterior Tibial (L), Posterior Tibial (R), Dorsalis Pedis (L), Dorsalis Pedis (R) GI/Abdominal: Normal Bowel Sounds, Soft, Non-Tender, No Organomegaly, No Abnormal Bruit, No Mass, Pelvis Stable, Other (Patient has had multiple upper surgical scars.) Back Exam: Normal Inspection, Full Range of Motion. No: CVA Tenderness (L), CVA Tenderness (R) Extremities: Normal Inspection, Normal Range of Motion, Non-Tender, No Pedal Edema Neurological: Alert, Oriented, CN II-XII Intact, Normal Cognition Psychiatric: Normal Affect, Anxious Skin Exam: Warm (Mildly.), Dry, Intact, Normal Color, No Rash EKG INTERPRETATION EKG Date: 01/08/19 Time: 13:25 Rhythm: NSR Rate (Beats/Min): 75 [place]: LAD-Left [place] Deviation (-18) P-Wave: Present QRS: Other (There is a near Q-wave in V1 and V2. Cannot rule out old anteroseptal myocardial infarction.) ST-T: Normal QT: Normal EKG Interpretation Comments: Borderline ECG Course - Vital Signs Last Recorded V/S: Last Vital Signs Temp 36.1 C 01/08/19 13:31 Pulse 74 01/08/19 13:31 Resp 24 H 01/08/19 13:31 BP 111/70 01/08/19 13:31 Pulse Ox 100 01/08/19 13:31 - Orders/Labs/Meds Orders: Active Orders 24 hr Category Date Time Status EKG Documentation Completion [RC] ASDIRECTED Care 01/08/19 14:00 Active Dextrose 5%-0.9% NaCl [Dextrose 5%-Normal Saline] 1,000 Med 01/08/19 13:45 Active ml IV ASDIRECTED Ketorolac [Toradol] Med 01/08/19 13:45 Active 30 mg IVPUSH ONETIME Sodium Chloride 0.9% [Normal Saline] 100 ml Med 01/08/19 16:00 Active IV ASDIRECTED Sodium Chloride 0.9% [Saline Flush] Med 01/08/19 15:46 Active 10 ml FLUSH ONETIME PRN EKG 12 Lead [EK] Stat Ther 01/08/19 14:00 Ordered Medication Orders Dextrose/Sodium Chloride (Dextrose 5%-Normal Saline) 1,000 mls @ 125 mls/hr IV ASDIRECTED JUVENAL Last Admin: 01/08/19 14:21 Dose: 125 mls/hr Sodium Chloride (Normal Saline) 100 mls @ 80 mls/hr IV ASDIRECTED JUVENAL Last Admin: 01/08/19 16:04 Dose: 80 mls/hr Ketorolac Tromethamine (Toradol) 30 mg IVPUSH ONETIME JUVENAL Last Admin: 01/08/19 14:20 Dose: 30 mg Sodium Chloride (Saline Flush) 10 ml FLUSH ONETIME PRN PRN Reason: KEEP VEIN OPEN Last Admin: 01/08/19 16:04 Dose: 10 ml Labs: Laboratory Tests 01/08/19 01/08/19 01/08/19 Range/Units 14:20 14:20 14:20 WBC 5.75 (4.23-9.07) K/mm3 RBC 4.43 L (4.63-6.08) M/mm3 Hgb 14.0 (13.7-17.5) gm/dl Hct 39.9 L (40.1-51.0) % MCV 90.1 (79.0-92.2) fl MCH 31.6 (25.7-32.2) pg MCHC 35.1 (32.2-35.5) g/dl RDW Std Deviation 44.0 H (35.1-43.9) fL Plt Count 204 (163-337) K/mm3 MPV 9.6 (9.4-12.3) fl Neut % (Auto) 48.7 (34.0-67.9) % Lymph % (Auto) 39.1 (21.8-53.1) % [place] % (Auto) 8.2 (5.3-12.2) % Eos % (Auto) 3.3 (0.8-7.0) Baso % (Auto) 0.7 (0.1-1.2) % Neut # (Auto) 2.80 (1.78-5.38) K/mm3 Lymph # (Auto) 2.25 (1.32-3.57) K/mm3 [place] # (Auto) 0.47 (0.30-0.82) K/mm3 Eos # (Auto) 0.19 (0.04-0.54) K/mm3 Baso # (Auto) 0.04 (0.01-0.08) K/mm3 PT 10.8 (9.7-12.0) SECONDS INR 0.99 APTT 24 (22-31) SECONDS D-Dimer, Quantitative 0.72 H (0.19-0.50) mg/L Sodium (136-145) mEq/L Potassium (3.5-5.1) mEq/L Chloride (98-107) mEq/L Carbon Dioxide (21-32) mEq/L Anion Gap (5-15) BUN (7-18) mg/dL Creatinine (0.7-1.3) mg/dL Est Cr Clr Drug Dosing mL/min Estimated GFR (MDRD) (>60) mL/min BUN/Creatinine Ratio (14-18) Glucose (74-106) mg/dL Calcium (8.5-10.1) mg/dL Magnesium 1.9 (1.8-2.4) mg/dl Total Bilirubin (0.2-1.0) mg/dL AST (15-37) U/L ALT (16-63) U/L Alkaline Phosphatase (46-116) U/L CK-MB (CK-2) 2.4 (0-3.6) ng/ml Troponin I < 0.017 (0.00-0.056) ng/mL C-Reactive Protein < 0.2 (<1.0) mg/dL NT-Pro-B Natriuret Pep (0-125) pg/mL Total Protein (6.4-8.2) g/dl Albumin (3.4-5.0) g/dl Globulin gm/dL Albumin/Globulin Ratio (1-2) 01/08/19 01/08/19 Range/Units 14:20 14:20 WBC (4.23-9.07) K/mm3 RBC (4.63-6.08) M/mm3 Hgb (13.7-17.5) gm/dl Hct (40.1-51.0) % MCV (79.0-92.2) fl MCH (25.7-32.2) pg MCHC (32.2-35.5) g/dl RDW Std Deviation (35.1-43.9) fL Plt Count (163-337) K/mm3 MPV (9.4-12.3) fl Neut % (Auto) (34.0-67.9) % Lymph % (Auto) (21.8-53.1) % [place] % (Auto) (5.3-12.2) % Eos % (Auto) (0.8-7.0) Baso % (Auto) (0.1-1.2) % Neut # (Auto) (1.78-5.38) K/mm3 Lymph # (Auto) (1.32-3.57) K/mm3 [place] # (Auto) (0.30-0.82) K/mm3 Eos # (Auto) (0.04-0.54) K/mm3 Baso # (Auto) (0.01-0.08) K/mm3 PT (9.7-12.0) SECONDS INR APTT (22-31) SECONDS D-Dimer, Quantitative (0.19-0.50) mg/L Sodium 138 (136-145) mEq/L Potassium 3.7 (3.5-5.1) mEq/L Chloride 105 (98-107) mEq/L Carbon Dioxide 25 (21-32) mEq/L Anion Gap 11.7 (5-15) BUN 15 (7-18) mg/dL Creatinine 0.8 (0.7-1.3) mg/dL Est Cr Clr Drug Dosing 138.64 mL/min Estimated GFR (MDRD) > 60 (>60) mL/min BUN/Creatinine Ratio 18.8 H (14-18) Glucose 94 (74-106) mg/dL Calcium 8.6 (8.5-10.1) mg/dL Magnesium (1.8-2.4) mg/dl Total Bilirubin 0.4 (0.2-1.0) mg/dL AST 22 (15-37) U/L ALT 31 (16-63) U/L Alkaline Phosphatase 68 (46-116) U/L CK-MB (CK-2) (0-3.6) ng/ml Troponin I (0.00-0.056) ng/mL C-Reactive Protein (<1.0) mg/dL NT-Pro-B Natriuret Pep 38 (0-125) pg/mL Total Protein 6.7 (6.4-8.2) g/dl Albumin 3.6 (3.4-5.0) g/dl Globulin 3.1 gm/dL Albumin/Globulin Ratio 1.2 (1-2) Meds: Medications Generic Name Dose Route Start Last Admin Trade Name Freq PRN Reason Stop Dose Admin Dextrose/Sodium Chloride 1,000 mls @ 125 mls/hr 01/08/19 13:45 01/08/19 14:21 Dextrose 5%-Normal Saline IV 125 mls/hr ASDIRECTED JUVENAL Administration Sodium Chloride 100 mls @ 80 mls/hr 01/08/19 16:00 01/08/19 16:04 Normal Saline IV 80 mls/hr ASDIRECTED JUVENAL Administration Ketorolac Tromethamine 30 mg 01/08/19 13:45 01/08/19 14:20 Toradol IVPUSH 30 mg ONETIME JUVENAL Administration Sodium Chloride 10 ml 01/08/19 15:46 01/08/19 16:04 Saline Flush FLUSH 10 ml ONETIME PRN Administration KEEP VEIN OPEN Discontinued Medications Generic Name Dose Route Start Last Admin Trade Name Freq PRN Reason Stop Dose Admin Fentanyl 50 mcg 01/08/19 14:50 01/08/19 15:20 Sublimaze IVPUSH 01/08/19 14:51 50 mcg ONETIME ONE Administration Fentanyl 50 mcg 01/08/19 15:46 01/08/19 16:12 Sublimaze IVPUSH 01/08/19 15:47 50 mcg ONETIME ONE Administration Iopamidol 100 ml 01/08/19 15:46 01/08/19 16:04 [id number] (76%) IVPUSH 01/08/19 15:47 100 ml ONETIME ONE Administration Ondansetron HCl 4 mg 01/08/19 14:26 01/08/19 14:30 Zofran IVPUSH 01/08/19 14:27 4 mg ONETIME ONE Administration - Radiology Interpretation Free Text/Narrative:: 48-year-old male presents to the ED with diffuse left lower precordial chest pain which radiates across to the midaxillary line of his chest. He states he's had this type of pain several times in the past and no apparent reason has been diagnosed for this. He has been diagnosed with a cardiomyopathy in 2013 presumed to be viral in etiology. He states that last echo suggested a ejection fraction of 45%. He's had an angiogram done within the last 2 months which was completely clear. Aortic component to this pain suggesting either pericarditis or pleurisy. He has no associated fever chills nausea vomiting. Of note the patient has Peutz-Jeghers syndrome with minimal pigmentation of his lower lip. He has had multiple EGDs and colonoscopies for removal of polyps from his stomach and colon. So far not have been malignant. - Re-Assessments/Exams Free Text/Narrative Re-Assessment/Exam: 01/08/19 14:28 chest x-ray reveals no abnormalities. Chronic somewhat is within normal limits. Wraps. Slight increased vascular congestion lower lobes. 01/08/19 14:46 Labs reveal a normal white count at 5.75. Auto differential shows 48.7% neutrophils. Hemoglobin is 14.0 with hematocrit of 39.9. Platelet count 204,000. 01/08/19 14:51 patient has received no relief relief from the Toradol given for pain relief. He reports that Dilaudid gave him a severe migraine headache in the past and morphine caused hives. Will therefore try him on low-dose fentanyl 50 g IV for pain relief at this time. His BP was 102/71 and therefore fentanyl is a more suitable drug as well for pain relief. 01/08/19 15:14 His PT is 10.8 with an INR of 0.99. PTT is 24. D-dimer is mildly elevated at 0.72. Will await the rest of his labs including renal function and BNP to decide whether or not to pursue CT pulmonary angiogram. 01/08/19 15:26 Magnesium is 1.9. CK-MB is 2.4 troponin I is less than 0.017 C- reactive protein is less than 0.2. 01/08/19 15:47 patient's BNP is 38 and therefore I will proceed with CT pulmonary and gram to rule out PE. He states the initial dose of phenylephrine 50 g did take the edge of the pain but started to come back. Will repeat fentanyl 50 g IV once again. 01/08/19 16:35 CT pulmonary angiogram has been completed. It is reported by radiologist as normal. Patient reassured in this regard. He'll be discharged on Percocet tabs 5/325 mg one or 2 every 4-6 hours necessary for pain relief. On a short course of prednisone 20 mg twice a day for 5 days and then once in the morning only for another 5 days. My thinking process is that this pain is most likely neurogenic in origin. If he continues to have pain perhaps a trial of gabapentin/Neurontin or Lyrica is in order to see if bring the pain under control. He will continue all his other current medications. Departure - Departure Time of Disposition: 16:44 Disposition: Home, Self-Care 01 Reason for Transfer *Q: Other Condition: Fair Clinical Impression: Non-cardiac chest pain, Pleurisy, Neurogenic pain Prescriptions: oxyCODONE HCl/Acetaminophen [Percocet 5-325 mg Tablet] 1 - 2 each PO Q4H PRN # 20 tablet PRN Reason: pain relief. predniSONE [Deltasone] 20 mg PO ASDIRECTED #16 tablet Instructions: Pleurisy, [id number] Referrals: De Medina MD [Primary Care Provider] - Forms: ED Department Discharge, ED Return to Work/School Form Additional Instructions: Evaluation the emergent today in regards to pleuritic-like chest pain left anterior lower chest rating towards the midaxillary line. Described as a heaviness pressure sensation that comes and goes intermittently over the last several months. Known cardiomyopathy but condition of the heart by recent history appears to be quite good. Ejection fraction reportedly 45 on last echo. Injured gram done within the last 2 months was completely clear. Today in the ED chest x-ray suggested perhaps very mild vascular congestion pattern but was done by portable technique. ECG did not did not show any changes. Lab work suggested a slightly elevated d-dimer at 0.72 with upper limits of normal being 0.50. There was no sign of extra fluid accumulation in the chest to account for your pain syndrome. Therefore CTs scan of the chest was done with pulmonary and gram technique which fills all the blood vessels with dye to make sure there was no blood clots in her lungs and none were found. Cause of your pain remains unclear. By history it appears to be pleuritic and likely is neurogenic in origin meaning there is inflammation of the nerve along the bottom of the ribs causing pain syndrome. At this time suggest Percocet tabs 5/325 mg one or 2 every 4-6 hours as needed for pain relief with food. Suggest a short course of Deltasone 20 mg in the morning and 20 mg at supper for 5 days then once in the morning only for another 5 days. May take first tablet for supper tonight. This is designed to try and reduce inflammation of nerve and inflammation of the lung lining that's causing the pain syndrome. Suggest follow-up with Dr. Sullivan in 10-12 days time to see how you are doing. - My Orders Last 24 Hours: My Active Orders 01/08/19 13:45 Dextrose 5%-0.9% NaCl [Dextrose 5%-Normal Saline] 1,000 ml IV ASDIRECTED Ketorolac [Toradol] 30 mg IVPUSH ONETIME 01/08/19 14:00 EKG Documentation Completion [RC] ASDIRECTED EKG 12 Lead [EK] Stat 01/08/19 15:46 Sodium Chloride 0.9% [Saline Flush] 10 ml FLUSH ONETIME PRN 01/08/19 16:00 Sodium Chloride 0.9% [Normal Saline] 100 ml IV ASDIRECTED - Assessment/Plan Last 24 Hours: My Active Orders 01/08/19 13:45 Dextrose 5%-0.9% NaCl [Dextrose 5%-Normal Saline] 1,000 ml IV ASDIRECTED Ketorolac [Toradol] 30 mg IVPUSH ONETIME 01/08/19 14:00 EKG Documentation Completion [RC] ASDIRECTED EKG 12 Lead [EK] Stat 01/08/19 15:46 Sodium Chloride 0.9% [Saline Flush] 10 ml FLUSH ONETIME PRN 01/08/19 16:00 Sodium Chloride 0.9% [Normal Saline] 100 ml IV ASDIRECTED
[2019-01-08] MEDS ORDERED: Ondansetron 4 MG/2 ML SDV IVPUSH ONE (14:26)
[2019-01-08] MEDS ORDERED: fentaNYL 100 MCG/2 ML SDV IVPUSH ONE ×2 (14:50→15:46)
--- NOTE | 2019-01-08 14:54 | CR ---
Chest: Portable view of the chest was obtained. Comparison: Prior chest x-ray of 11/27/18. Heart size and mediastinum are within normal limits for portable technique. Lungs are clear. Bony structures are grossly intact. Surgical clips are seen from prior cholecystectomy. Impression: 1. Incidental findings. Nothing acute is seen on portable chest x-ray. Diagnostic code #2
[2019-01-08] MEDS ORDERED: Iopamidol 755 Mg/ML 100 ML Bottle IVPUSH ONE (15:46)
[2019-01-08] MEDS ORDERED: Sodium Chloride 0.9% 10 ML Syringe FLUSH PRN (15:46)
[2019-01-08] MEDS ORDERED: Sodium Chloride 0.9% 100 ML IV SCH (16:00)
--- NOTE | 2019-01-08 16:24 | CT ---
CT chest Technique: Multiple axial sections through the chest were obtained. Intravenous contrast was utilized. Study was performed as a pulmonary angiogram protocol. Findings: Pulmonary arteries are well-opacified. No filling defects are seen to indicate pulmonary embolism. Mediastinum and hilar regions show no adenopathy or mass. Thoracic aorta shows no aneurysm or dissection. No pericardial thickening is seen. Small portion of the visualized upper abdominal structures show previous cholecystectomy. Lungs show no acute parenchymal change. Impression: 1. No findings of pulmonary embolism. Nothing acute is appreciated on CT study of the chest. Diagnostic code #2
== END 2019-01-08 16:56 | disposition home or self-care (01) ==
LOC: JD.ED 13:18
DX: R07.89 Other chest pain (principal); R09.1 Pleurisy; M79.2 Neuralgia and neuritis, unspecified; I50.9 Heart failure, unspecified; K21.9 Gastro-esophageal reflux disease without esophagitis; Z79.82 Long term (current) use of aspirin; Z79.899 Other long term (current) drug therapy; Z88.5 Allergy status to narcotic agent; Z91.041 Radiographic dye allergy status
CPT/HCPCS: 36415; 71045; 71275; 80053; 82553; 83735; 83880; 84484; 85025; 85379; 85610; 85730; 86140; 93005; 96361; 96374; 96375; 96376; 99285; J1885; J2405; J3010; J7030; J7042; Q9967; 93010; 99284

== ENCOUNTER 2019-02-17 11:42 | Emergency (ER) | payer BC ==
[2019-02-17] MEDS ORDERED: Sodium Chloride 0.9% 10 ML Syringe FLUSH PRN (11:58)
--- NOTE | 2019-02-17 12:02 | EDM.PDOC ---
ED HPI GENERAL MEDICAL PROBLEM - General Chief Complaint: Syncope Stated Complaint: CHEST PAIN Time Seen by Provider: 02/17/19 11:54 Source of Information: Reports: Patient History Limitations: Reports: No Limitations - History of Present Illness INITIAL COMMENTS - FREE TEXT/NARRATIVE: Patient is unfortunate 48-year-old male who presents emergency Department today with complaint of left-sided chest pain and syncope. Patient reports he was in his normal state of health until approximately 20 minutes prior to arrival when he was getting ready for work and stood up off the bed felt a sharp pain in his left chest and then awoke on the floor with a headache. Patient reports he has a history of cardiomyopathy and sees a Dr. Drew in [place] and reports he was hospitalized for this in November of this year at that time he had a stress test and a angiogram which were both "negative " and he had an echocardiogram which showed an EF of 45%. He reports at that time he had chest pain which was similar to what he is experiencing at this time. He describes this pain as a sharp stabbing type pain to his left chest wall at the anterior axillary line on the fifth sixth rib intercostal space, the pain is worse with deep inspiration or palpation, improves with rest but does not alleviate. Patient reports he has a "bandlike headache" around his entire head which is throbbing in nature nothing makes the pain better or worse. Patient was seen here in January of this year for similar symptoms and was discharged home on steroids and analgesics Chest Pain Score (Numeric/FACES): 4 - Related Data Allergies Allergy/AdvReac Type Severity Reaction Status Date / Time hydromorphone [From Dilaudid] Allergy Dizziness Verified 02/17/19 12:32 morphine Allergy Itching Verified 09/02/18 11:32 barium contrast Allergy Airway Uncoded 06/09/18 15:52 Tightness Home Meds: Home Meds Fexofenadine [Loan] 180 mg PO DAILY PRN 01/06/18 [History] Lisinopril 2.5 mg PO BEDTIME 01/06/18 [History] Pantoprazole Sodium [Protonix] 40 mg PO BEDTIME 01/06/18 [History] Aspirin [Halfprin] 81 mg PO DAILY 11/27/18 [History] Butalbital/Aspirin/Caffeine [Fiorinal 50-325-40 MG] 2 cap PO Q6H PRN 11/27/18 [ History] Carvedilol [Coreg] 3.125 mg PO BID 11/27/18 [History] Amoxicillin 500 mg PO TID #21 capsule 02/17/19 [Rx] Ibuprofen 800 mg PO TID #15 tablet 02/17/19 [Rx] Past Medical History HEENT History: Reports: Allergic Rhinitis, Other (See Below) Other HEENT History: Wears glasse Cardiovascular History: Reports: Cardiomyopathy, Heart Failure Gastrointestinal History: Reports: Colon Polyp, Diverticulosis, GERD, Other ( See Below) Other 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 So far none of them have been malignant. Musculoskeletal History: Reports: Back Pain, Chronic Neurological History: Reports: Migraines, Other (See Below) Other Neuro History: states has "migraine syndrome." Psychiatric History: Reports: Anxiety, Depression - Infectious Disease History Infectious Disease History: Reports: Chicken Pox - Past Surgical History HEENT Surgical History: Reports: Adenoidectomy, Oral Surgery, Tonsillectomy Cardiovascular Surgical History: Reports: None GI Surgical History: Reports: Appendectomy, Cholecystectomy, Colonoscopy, EGD, Hernia, Abdominal Male Surgical History: Reports: Vasectomy Neurological Surgical History: Reports: Lumbar Spine Musculoskeletal Surgical History: Reports: Other (See Below) Other Musculoskeletal Surgeries/Procedures:: back surgery. Social & Family History - Family History Family Medical History: Noncontributory - Caffeine Use Caffeine Use: Reports: None - Living Situation & Occupation Living situation: Reports: , with Family (Daughter) Occupation: Employed ([employer]) [facility] [employer] [facility] - Review of Systems Review Of Systems: See Below Constitutional: Denies: Fever, Chills HEENT: Reports: No Symptoms Respiratory: Reports: No Symptoms Cardiovascular: Reports: Chest Pain Endocrine: Reports: No Symptoms GI/Abdominal: Reports: No Symptoms : Reports: No Symptoms Musculoskeletal: Reports: No Symptoms Skin: Reports: No Symptoms Neurological: Reports: Headache, Syncope. Denies: Confusion, Dizziness Psychiatric: Reports: No Symptoms Hematologic/Lymphatic: Reports: No Symptoms Immunologic: Reports: No Symptoms - Physical Exam Exam: See Below Exam Limited By: No Limitations General Appearance: Alert, WD/WN, Moderate Distress Eye Exam: Bilateral Eye: EOMI (Intact), PERRL Nose: Normal Inspection, Normal Mucosa, No Blood Throat/Mouth: Normal Inspection, Normal Lips, Normal Teeth, Normal Gums, Normal Oropharynx, Normal Voice, No Airway Compromise Head Exam: Atraumatic, Normocephalic Neck: Normal Inspection, Supple, Non-Tender, Full Range of Motion Respiratory/Chest: No Respiratory Distress, Lungs Clear, Normal Breath Sounds, No Accessory Muscle Use, Chest Non-Tender Cardiovascular: Normal Peripheral Pulses, Regular Rate, Rhythm, No Edema, No Gallop, No JVD, No Murmur, No Rub, Other (Moderate tenderness to left chest wall anterior axillary line fifth sixth intercostal space) GI/Abdominal: Normal Bowel Sounds, Soft, Non-Tender, No Organomegaly, No Distention, No Abnormal Bruit, No Mass Neuro Exam (Abbreviated): Alert, Oriented, CN II-XII Intact, Normal Cognition, Normal Gait, Normal Reflexes, No Motor/Sensory Deficits EKG INTERPRETATION EKG Date: 02/17/19 Time: 12:38 Rhythm: NSR [place]: LAD-Left [place] Deviation P-Wave: Present QRS: Normal ST-T: Other (NSST changes) Course - Vital Signs Last Recorded V/S: Last Vital Signs Temp 97.2 F 02/17/19 11:54 Pulse 83 02/17/19 11:54 Resp 18 02/17/19 11:54 BP 125/81 02/17/19 11:54 Pulse Ox 97 02/17/19 11:54 - Orders/Labs/Meds Orders: Active Orders 24 hr Category Date Time Status Communication Order [RC] STAT Care 02/17/19 13:37 Ordered EKG Documentation Completion [RC] ASDIRECTED Care 02/17/19 11:59 Active Sodium Chloride 0.9% [Saline Flush] Med 02/17/19 11:58 Active 10 ml FLUSH ASDIRECTED PRN Saline Lock Insert [OM.PC] Stat Oth 02/17/19 11:58 Ordered EKG 12 Lead [EK] Stat Ther 02/17/19 11:58 Ordered Medication Orders Sodium Chloride (Saline Flush) 10 ml FLUSH ASDIRECTED PRN PRN Reason: Keep Vein Open Last Admin: 02/17/19 12:06 Dose: 10 ml Labs: Laboratory Tests 02/17/19 02/17/19 02/17/19 Range/Units 12:07 12:10 12:10 WBC 6.30 (4.23-9.07) K/mm3 RBC 4.91 (4.63-6.08) M/mm3 Hgb 15.1 (13.7-17.5) gm/dl Hct 44.3 (40.1-51.0) % MCV 90.2 (79.0-92.2) fl MCH 30.8 (25.7-32.2) pg MCHC 34.1 (32.2-35.5) g/dl RDW Std Deviation 43.9 (35.1-43.9) fL Plt Count 237 (163-337) K/mm3 MPV 9.5 (9.4-12.3) fl Neut % (Auto) 48.0 (34.0-67.9) % Lymph % (Auto) 39.2 (21.8-53.1) % [place] % (Auto) 9.0 (5.3-12.2) % Eos % (Auto) 3.0 (0.8-7.0) Baso % (Auto) 0.6 (0.1-1.2) % Neut # (Auto) 3.02 (1.78-5.38) K/mm3 Lymph # (Auto) 2.47 (1.32-3.57) K/mm3 [place] # (Auto) 0.57 (0.30-0.82) K/mm3 Eos # (Auto) 0.19 (0.04-0.54) K/mm3 Baso # (Auto) 0.04 (0.01-0.08) K/mm3 Sodium 138 (136-145) mEq/L Potassium 4.2 (3.5-5.1) mEq/L Chloride 101 (98-107) mEq/L Carbon Dioxide 28 (21-32) mEq/L Anion Gap 13.2 (5-15) BUN 17 (7-18) mg/dL Creatinine 0.9 (0.7-1.3) mg/dL Est Cr Clr Drug Dosing 123.23 mL/min Estimated GFR (MDRD) > 60 (>60) mL/min BUN/Creatinine Ratio 18.9 H (14-18) Glucose 93 (74-106) mg/dL Calcium 9.1 (8.5-10.1) mg/dL Total Bilirubin 0.4 (0.2-1.0) mg/dL AST 23 (15-37) U/L ALT 38 (16-63) U/L Alkaline Phosphatase 75 (46-116) U/L Troponin I < 0.017 (0.00-0.056) ng/mL Total Protein 7.8 (6.4-8.2) g/dl Albumin 4.1 (3.4-5.0) g/dl Globulin 3.7 gm/dL Albumin/Globulin Ratio 1.1 (1-2) Urine Color Yellow (Yellow) Urine Appearance Clear (Clear) Urine pH 7.0 (5.0-8.0) Ur Specific [place] 1.015 (1.005-1.030) Urine Protein Negative (Negative) Urine Glucose (UA) Negative (Negative) Urine Ketones Negative (Negative) Urine Occult Blood Negative (Negative) Urine Nitrite Negative (Negative) Urine Bilirubin Negative (Negative) Urine Urobilinogen 0.2 (0.2-1.0) Ur Leukocyte Esterase Negative (Negative) Meds: Medications Generic Name Dose Route Start Last Admin Trade Name Kristen PRN Reason Stop Dose Admin Sodium Chloride 10 ml 02/17/19 11:58 02/17/19 12:06 Saline Flush FLUSH 10 ml ASDIRECTED PRN Administration Keep Vein Open Discontinued Medications Generic Name Dose Route Start Last Admin Trade Name Kristen PRN Reason Stop Dose Admin Diphenhydramine HCl 25 mg 02/17/19 13:38 Benadryl IVPUSH 02/17/19 13:39 ONETIME ONE Fentanyl 25 mcg 02/17/19 12:37 02/17/19 12:51 Sublimaze IVPUSH 02/17/19 12:38 25 mcg ONETIME ONE Administration Hydromorphone HCl 1 mg 02/17/19 12:06 02/17/19 12:52 Dilaudid IVPUSH 02/17/19 12:07 Not Given ONETIME ONE Acetaminophen 65 mls @ 400 mls/hr 02/17/19 13:04 Ofirmev IV 02/17/19 13:13 NOW ONE Ketorolac Tromethamine 10 mg 02/17/19 13:22 Toradol IVPUSH 02/17/19 13:23 ONETIME ONE Metoclopramide HCl 10 mg 02/17/19 13:38 Reglan IVPUSH 02/17/19 13:39 ONETIME ONE Ondansetron HCl 4 mg 02/17/19 12:06 02/17/19 12:33 Zofran IVPUSH 02/17/19 12:07 4 mg ONETIME ONE Administration - Radiology Interpretation Free Text/Narrative:: Head CT showed mucosal thickening in the right axillary sinus otherwise NAD - Re-Assessments/Exams Free Text/Narrative Re-Assessment/Exam: 02/17/19 12:58 Chest x-ray interpreted by me NAD Free Text/Narrative Re-Assessment/Exam: 02/17/19 13:38 Bedside sonogram done by me which shows no pericardial effusion, with Dr. 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 Patient continues to have headache and mild chest pain patient chest pain has improved but not resolved we'll give her Reglan and Benadryl for headache and discharge to home with ibuprofen Departure - Departure Time of Disposition: 13:40 Disposition: Home, Self-Care 01 Clinical Impression: Atypical chest pain Migraine Qualifiers: Migraine type: without aura Status migrainosus presence: without status migrainosus Intractability: not intractable Qualified Code(s): G43.009 - Migraine without aura, not intractable, without status migrainosus Syncope Qualifiers: Syncope type: unspecified Qualified Code(s): R55 - Syncope and collapse Sinusitis Qualifiers: Sinusitis location: unspecified location Chronicity: acute Recurrence: non- recurrent Qualified Code(s): J01.90 - Acute sinusitis, unspecified - Discharge Information Prescriptions: Amoxicillin 500 mg PO TID #21 capsule Ibuprofen 800 mg PO TID #15 tablet Instructions: Migraine Headache, [id number], Sinusitis, Adult, [id number], Nonspecific Chest Pain Referrals: De Medina MD [Primary Care Provider] - Forms: ED Department Discharge Additional Instructions: Home, rest, adequate fluids, follow-up with Dr. Drew in 1-2 weeks, return as needed for worsening condition - My Orders Last 24 Hours: My Active Orders 02/17/19 11:58 Sodium Chloride 0.9% [Saline Flush] 10 ml FLUSH ASDIRECTED PRN Saline Lock Insert [OM.PC] Stat EKG 12 Lead [EK] Stat 02/17/19 11:59 EKG Documentation Completion [RC] ASDIRECTED 02/17/19 13:37 Communication Order [RC] STAT - Assessment/Plan Last 24 Hours: My Active Orders 02/17/19 11:58 Sodium Chloride 0.9% [Saline Flush] 10 ml FLUSH ASDIRECTED PRN Saline Lock Insert [OM.PC] Stat EKG 12 Lead [EK] Stat 02/17/19 11:59 EKG Documentation Completion [RC] ASDIRECTED 02/17/19 13:37 Communication Order [RC] STAT
[2019-02-17] MEDS ORDERED: HYDROmorphone 1 MG/ML Syringe IVPUSH ONE (12:06)
[2019-02-17] MEDS ORDERED: Ondansetron 4 MG/2 ML SDV IVPUSH ONE (12:06)
[2019-02-17] MEDS ORDERED: fentaNYL 100 MCG/2 ML SDV IVPUSH ONE (12:37)
[2019-02-17] MEDS ORDERED: Ketorolac 15 MG/ML SDV IVPUSH ONE (13:22)
--- NOTE | 2019-02-17 13:26 | CT ---
Head CT Technique: Multiple axial sections through the brain were obtained. Intravenous contrast was not utilized. Comparison: No prior intracranial imaging is available. Findings: Ventricles along with basal cisterns and sulci over the convexities appear within normal limits for the patient's age. No abnormal parenchymal densities are seen. No evidence of intracranial hemorrhage. No midline shift or mass effect is seen. Mucosal thickening and possible fluid within the right mastoid sinus is noted. Other mastoid sinuses are clear. No paranasal sinus findings are seen. No acute calvarial abnormality is seen. Impression: 1. Mucosal thickening and fluid within the inferior right maxillary sinus. Please exclude any symptoms of mastoiditis. 2. No acute intracranial abnormality is appreciated on noncontrast head CT exam. Diagnostic code #3
--- NOTE | 2019-02-17 13:26 | CR ---
Chest: Portable view of the chest was obtained. Comparison: Prior chest x-ray of 01/08/19. Heart size and mediastinum are normal for portable technique. Lungs are clear. Bony structures are grossly intact. Surgical clips are seen from prior cholecystectomy. Impression: 1. Nothing acute is seen on portable chest x-ray. Diagnostic code #1
[2019-02-17] MEDS ORDERED: Metoclopramide 10 MG/2 ML SDV IVPUSH ONE (13:38)
[2019-02-17] MEDS ORDERED: diphenhydrAMINE 50 MG/ML SDV IVPUSH ONE (13:38)
== END 2019-02-17 14:28 | disposition home or self-care (01) ==
LOC: JD.ED 11:42
DX: R55 Syncope and collapse (principal); R07.89 Other chest pain; G43.009 Migraine without aura, not intractable, without status migrainosus; J01.90 Acute sinusitis, unspecified; K21.9 Gastro-esophageal reflux disease without esophagitis; Z88.5 Allergy status to narcotic agent; Z88.6 Allergy status to analgesic agent; Z91.041 Radiographic dye allergy status; Z88.2 Allergy status to sulfonamides; Z79.899 Other long term (current) drug therapy
CPT/HCPCS: 36415; 70450; 71045; 80053; 81003; 84484; 85025; 93005; 96374; 96375; 99285; J1200; J1885; J2405; J2765; J3010; 93010

== ENCOUNTER 2019-02-19 09:15 | Emergency (ER) | payer BC ==
[2019-02-19] MEDS: Sodium Chloride 0.9% 10 ML Syringe FLUSH PRN ×2 (09:58→12:34)
[2019-02-19] MEDS ORDERED: Acetaminophen 325 MG Tab PO ONE (10:25)
[2019-02-19] MEDS ORDERED: LORazepam 1 MG Tab PO ONE (10:25)
[2019-02-19] MEDS ORDERED: Ketorolac 30 MG/ML SDV IVPUSH SCH (10:30)
[2019-02-19] MEDS ORDERED: Ondansetron 4 MG/2 ML SDV IVPUSH ONE (10:44)
[2019-02-19] MEDS ORDERED: Ondansetron 4 MG/2 ML SDV ONE (10:45)
--- NOTE | 2019-02-19 11:12 | EDM.PDOC ---
ED HPI GENERAL MEDICAL PROBLEM - General Chief Complaint: Chest Pain Stated Complaint: CHEST PAIN Time Seen by Provider: 02/19/19 09:28 Source of Information: Reports: Patient, RN Notes Reviewed - History of Present Illness INITIAL COMMENTS - FREE TEXT/NARRATIVE: 48-year-old male comes in with right-sided chest pain. He has been having this up off and on for 2 days. It was quite severe 2 days ago prompting an ED visit. See that record for details. He states it was better yesterday although it did not go away completely. This morning over the last few hours the right-sided chest discomfort has been getting worse. The pain is worse with deep breathing. He denies frequent cough, fever or chills. He states he does have history of cardiomyopathy first diagnosed about 5 years ago. He is on coreg and lisinopril for that. His workup here in the ED 2 days ago was apparently negative. He is mildly short of breath. There has been no recent peripheral leg edema, leg swelling or other unusual symptoms. He did have quite severe similar discomfort 2 days ago and states he also "passed out at that time". He states he did have head CT and other diagnostics at that time that checked out okay. Right Chest Pain Score (Numeric/FACES): 10 - Related Data Allergies Allergy/AdvReac Type Severity Reaction Status Date / Time hydromorphone [From Dilaudid] Allergy Dizziness Verified 02/19/19 09:24 morphine Allergy Itching Verified 02/19/19 09:24 barium contrast Allergy Severe Airway Uncoded 02/19/19 09:24 Tightness Home Meds: Home Meds Fexofenadine [Loan] 180 mg PO DAILY PRN 01/06/18 [History] Lisinopril 2.5 mg PO BEDTIME 01/06/18 [History] Pantoprazole Sodium [Protonix] 40 mg PO BEDTIME 01/06/18 [History] Aspirin [Halfprin] 81 mg PO DAILY 11/27/18 [History] Butalbital/Aspirin/Caffeine [Fiorinal 50-325-40 MG] 2 cap PO Q6H PRN 11/27/18 [ History] Carvedilol [Coreg] 3.125 mg PO BID 11/27/18 [History] Amoxicillin 500 mg PO TID #21 capsule 02/17/19 [Rx] Ibuprofen 800 mg PO TID #15 tablet 02/17/19 [Rx] Hydrocodone/Acetaminophen [[place] 5-325 Tablet] 1 each PO Q6HR PRN #10 tablet [Rx] Naproxen [Naprosyn] 500 mg PO Q12HR #14 tab 02/19/19 [Rx] Past Medical History HEENT History: Reports: Allergic Rhinitis, Other (See Below) Other HEENT History: Wears glasse Cardiovascular History: Reports: Cardiomyopathy, Heart Failure Gastrointestinal History: Reports: Colon Polyp, Diverticulosis, GERD, Other ( See Below) Other 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 So far none of them have been malignant. Musculoskeletal History: Reports: Back Pain, Chronic Neurological History: Reports: Migraines, Other (See Below) Other Neuro History: states has "migraine syndrome." Psychiatric History: Reports: Anxiety, Depression - Infectious Disease History Infectious Disease History: Reports: Chicken Pox - Past Surgical History HEENT Surgical History: Reports: Adenoidectomy, Oral Surgery, Tonsillectomy Cardiovascular Surgical History: Reports: None GI Surgical History: Reports: Appendectomy, Cholecystectomy, Colonoscopy, EGD, Hernia, Abdominal Male Surgical History: Reports: Vasectomy Neurological Surgical History: Reports: Lumbar Spine Musculoskeletal Surgical History: Reports: Other (See Below) Other Musculoskeletal Surgeries/Procedures:: back surgery. Social & Family History - Family History Family Medical History: Noncontributory - Tobacco Use Smoking Status *Q: Never Smoker Second Hand Smoke Exposure: No - Caffeine Use Caffeine Use: Reports: Soda - Recreational Drug Use Recreational Drug Use: No - Living Situation & Occupation Living situation: Reports: , with Family (Daughter) Occupation: Employed ([employer]) ED ROS GENERAL - Review of Systems Review Of Systems: See Below Constitutional: Denies: Fever, Chills, Diaphoresis HEENT: Reports: No Symptoms. Denies: Glasses, Throat Pain Respiratory: Reports: Shortness of Breath, Pleuritic Chest Pain (Mi) Cardiovascular: Reports: Chest Pain (Pleuritic) GI/Abdominal: Denies: Abdominal Pain, Nausea, Vomiting Musculoskeletal: Denies: Shoulder Pain, Arm Pain, Back Pain Skin: Reports: No Symptoms. Denies: Rash Neurological: Reports: Dizziness (Mild). Denies: Numbness, Tingling, Weakness ED EXAM, GENERAL - Physical Exam Exam: See Below Exam Limited By: No Limitations General Appearance: Alert, Moderate Distress Eye Exam: Bilateral Eye: PERRL Throat/Mouth: Normal Inspection, Normal Oropharynx Head: Atraumatic. No: Facial Swelling Neck: Supple, Other (No JVD) Respiratory/Chest: No Respiratory Distress, Normal Breath Sounds, No Accessory Muscle Use. No: Rales, Rhonchi, Wheezing Cardiovascular: Regular Rate, Rhythm GI/Abdominal: Soft, Non-Tender Back Exam: No: CVA Tenderness (L), CVA Tenderness (R) Extremities: Normal Inspection, No Pedal Edema. No: Leg Pain, Increased Warmth , Redness Neurological: Alert, Oriented, No Motor/Sensory Deficits Skin Exam: Warm, Dry, Normal Color EKG INTERPRETATION EKG Date: 02/19/19 Rhythm: NSR [place]: LAD-Left [place] Deviation P-Wave: Present QRS: Other (Q waves V2) ST-T: Normal QT: Normal Course - Vital Signs Last Recorded V/S: Last Vital Signs Temp 98.0 F 02/19/19 09:23 Pulse 90 02/19/19 09:23 Resp 20 02/19/19 09:23 BP 137/89 02/19/19 09:23 Pulse Ox 100 02/19/19 09:23 - Orders/Labs/Meds Orders: Active Orders 24 hr Category Date Time Status EKG Documentation Completion [RC] ASDIRECTED Care 02/19/19 09:18 Active Holter Monitor 48 Hours [RC] .PRN Care 02/19/19 14:20 Active Peripheral IV Care [RC] . DIRECTED Care 02/19/19 09:44 Active Ketorolac [Toradol] Med 02/19/19 10:30 Active 30 mg IVPUSH ONETIME Sodium Chloride 0.9% [Normal Saline] 1,000 ml Med 02/19/19 11:45 Active IV ONETIME Sodium Chloride 0.9% [Normal Saline] 100 ml Med 02/19/19 11:45 Active IV ASDIRECTED Sodium Chloride 0.9% [Saline Flush] Med 02/19/19 09:43 Active 10 ml FLUSH ASDIRECTED PRN Peripheral IV Insertion Adult [OM.PC] Stat Oth 02/19/19 09:43 Ordered EKG 12 Lead [EK] Stat Ther 02/19/19 09:18 Ordered Medication Orders Sodium Chloride (Normal Saline) 1,000 mls @ 999 mls/hr IV ONETIME JUVENAL Last Admin: 02/19/19 11:45 Dose: 999 mls/hr Sodium Chloride (Normal Saline) 100 mls @ 60 mls/hr IV ASDIRECTED JUVENAL Last Admin: 02/19/19 12:34 Dose: 60 mls/hr Ketorolac Tromethamine (Toradol) 30 mg IVPUSH ONETIME JUVENAL Last Admin: 02/19/19 10:39 Dose: 30 mg Sodium Chloride (Saline Flush) 10 ml FLUSH ASDIRECTED PRN PRN Reason: Keep Vein Open Last Admin: 02/19/19 12:34 Dose: 10 ml Admin: 02/19/19 09:58 Dose: 10 ml Labs: Laboratory Tests 02/19/19 02/19/19 02/19/19 Range/Units 09:46 09:46 09:46 WBC 6.84 (4.23-9.07) K/mm3 RBC 4.62 L (4.63-6.08) M/mm3 Hgb 14.1 (13.7-17.5) gm/dl Hct 41.8 (40.1-51.0) % MCV 90.5 (79.0-92.2) fl MCH 30.5 (25.7-32.2) pg MCHC 33.7 (32.2-35.5) g/dl RDW Std Deviation 44.2 H (35.1-43.9) fL Plt Count 225 (163-337) K/mm3 MPV 9.8 (9.4-12.3) fl Neut % (Auto) 55.6 (34.0-67.9) % Lymph % (Auto) 34.2 (21.8-53.1) % [place] % (Auto) 7.5 (5.3-12.2) % Eos % (Auto) 2.2 (0.8-7.0) Baso % (Auto) 0.4 (0.1-1.2) % Neut # (Auto) 3.80 (1.78-5.38) K/mm3 Lymph # (Auto) 2.34 (1.32-3.57) K/mm3 [place] # (Auto) 0.51 (0.30-0.82) K/mm3 Eos # (Auto) 0.15 (0.04-0.54) K/mm3 Baso # (Auto) 0.03 (0.01-0.08) K/mm3 D-Dimer, Quantitative 0.77 H (0.19-0.50) mg/L Sodium 138 (136-145) mEq/L Potassium 4.1 (3.5-5.1) mEq/L Chloride 103 (98-107) mEq/L Carbon Dioxide 26 (21-32) mEq/L Anion Gap 13.1 (5-15) BUN 21 H (7-18) mg/dL Creatinine 0.8 (0.7-1.3) mg/dL Est Cr Clr Drug Dosing 138.64 mL/min Estimated GFR (MDRD) > 60 (>60) mL/min BUN/Creatinine Ratio 26.3 H (14-18) Glucose 99 (74-106) mg/dL Calcium 9.0 (8.5-10.1) mg/dL Total Bilirubin 0.5 (0.2-1.0) mg/dL AST 26 (15-37) U/L ALT 47 (16-63) U/L Alkaline Phosphatase 72 (46-116) U/L Troponin I < 0.017 (0.00-0.056) ng/mL Total Protein 7.2 (6.4-8.2) g/dl Albumin 4.1 (3.4-5.0) g/dl Globulin 3.1 gm/dL Albumin/Globulin Ratio 1.3 (1-2) Meds: Medications Generic Name Dose Route Start Last Admin Trade Name Freq PRN Reason Stop Dose Admin Sodium Chloride 1,000 mls @ 999 mls/hr 02/19/19 11:45 02/19/19 11:45 Normal Saline IV 999 mls/hr ONETIME JUVENAL Administration Sodium Chloride 100 mls @ 60 mls/hr 02/19/19 11:45 02/19/19 12:34 Normal Saline IV 60 mls/hr ASDIRECTED JUVENAL Administration Ketorolac Tromethamine 30 mg 02/19/19 10:30 02/19/19 10:39 Toradol IVPUSH 30 mg ONETIME JUVENAL Administration Sodium Chloride 10 ml 02/19/19 09:43 02/19/19 12:34 Saline Flush FLUSH 10 ml ASDIRECTED PRN Administration Keep Vein Open Discontinued Medications Generic Name Dose Route Start Last Admin Trade Name Kristen PRN Reason Stop Dose Admin Acetaminophen 975 mg 02/19/19 10:25 02/19/19 10:38 Tylenol PO 02/19/19 10:26 975 mg NOW ONE Administration Fentanyl 100 mcg 02/19/19 11:33 02/19/19 11:45 Sublimaze IVPUSH 02/19/19 11:34 100 mcg ONETIME ONE Administration Fentanyl 100 mcg 02/19/19 13:35 02/19/19 13:41 Sublimaze IVPUSH 02/19/19 13:36 100 mcg ONETIME ONE Administration Iopamidol 100 ml 02/19/19 11:39 02/19/19 12:34 Isovue-370 (76%) IVPUSH 02/19/19 11:40 100 ml ONETIME ONE Administration Lorazepam 1 mg 02/19/19 10:25 02/19/19 10:38 Ativan PO 02/19/19 10:26 1 mg ONETIME ONE Administration Ondansetron HCl 4 mg 02/19/19 10:44 02/19/19 10:46 Zofran IVPUSH 02/19/19 10:45 4 mg ONETIME ONE Administration Ondansetron HCl Confirm 02/19/19 10:45 02/19/19 11:47 Zofran Administered 02/19/19 10:46 Not Given Dose 4 mg .ROUTE .[facility] ONE - Re-Assessments/Exams Free Text/Narrative Re-Assessment/Exam: 02/19/19 15:15 D-dimer did come back mildly elevated, chest x-ray was normal. EKG did not show acute changes. With elevated d-dimer CT pulmonary angiogram was done which did not show findings of acute pulmonary embolism or other acute pathology. See Radiology report for details. Discharge instructions as documented. Departure - Departure Time of Disposition: 14:24 Disposition: Home, Self-Care 01 Condition: Fair Clinical Impression: Pleurisy Syncope Qualifiers: Syncope type: unspecified Qualified Code(s): R55 - Syncope and collapse Prescriptions: Hydrocodone/Acetaminophen [[place] 5-325 Tablet] 1 each PO Q6HR PRN #10 tablet PRN Reason: Pain Naproxen [Naprosyn] 500 mg PO Q12HR #14 tab Instructions: Pleurisy, [id number], Syncope, [id number] Referrals: De Medina MD [Primary Care Provider] - Forms: ED Department Discharge Additional Instructions: 48 hour Holter monitor, Naprosyn 500 mg twice daily for the next 3-5 days or until pain resolving, be sure to take that with food so as not to upset your stomach. You may take Tylenol in addition up to 3 times daily or hydrocodone if needed for severe pain. Do not drive or work when taking hydrocodone. Do not take Tylenol and hydrocodone at the same time. Prescriptions have been sent electronically to [facility] pharmacy. Follow up with your Data Analytics Architect, Dr. Drew in about 7-10 days. Return to ED as needed if symptoms worsening in any way. - My Orders Last 24 Hours: My Active Orders 02/19/19 09:18 EKG Documentation Completion [RC] ASDIRECTED EKG 12 Lead [EK] Stat 02/19/19 09:43 Sodium Chloride 0.9% [Saline Flush] 10 ml FLUSH ASDIRECTED PRN Peripheral IV Insertion Adult [OM.PC] Stat 02/19/19 09:44 Peripheral IV Care [RC] . DIRECTED 02/19/19 10:30 Ketorolac [Toradol] 30 mg IVPUSH ONETIME 02/19/19 11:45 Sodium Chloride 0.9% [Normal Saline] 1,000 ml IV ONETIME Sodium Chloride 0.9% [Normal Saline] 100 ml IV ASDIRECTED 02/19/19 14:20 Holter Monitor 48 Hours [RC] .PRN - Assessment/Plan Last 24 Hours: My Active Orders 02/19/19 09:18 EKG Documentation Completion [RC] ASDIRECTED EKG 12 Lead [EK] Stat 02/19/19 09:43 Sodium Chloride 0.9% [Saline Flush] 10 ml FLUSH ASDIRECTED PRN Peripheral IV Insertion Adult [OM.PC] Stat 02/19/19 09:44 Peripheral IV Care [RC] . DIRECTED 02/19/19 10:30 Ketorolac [Toradol] 30 mg IVPUSH ONETIME 02/19/19 11:45 Sodium Chloride 0.9% [Normal Saline] 1,000 ml IV ONETIME Sodium Chloride 0.9% [Normal Saline] 100 ml IV ASDIRECTED 02/19/19 14:20 Holter Monitor 48 Hours [RC] .PRN
[2019-02-19] MEDS ORDERED: fentaNYL 100 MCG/2 ML SDV IVPUSH ONE ×2 (11:33→13:35)
[2019-02-19] MEDS ORDERED: Iopamidol 755 Mg/ML 100 ML Bottle IVPUSH ONE (11:39)
[2019-02-19] MEDS ORDERED: Sodium Chloride 0.9% 1,000 ML IV SCH (11:45)
[2019-02-19] MEDS ORDERED: Sodium Chloride 0.9% 100 ML IV SCH (11:45)
--- NOTE | 2019-02-19 13:20 | CR ---
Chest: Portable view of the chest was obtained. Comparison: Prior chest x-ray of 02/17/19. Heart size is normal. Upper mediastinum is normal. Lungs are clear. Bony structures are grossly intact. Surgical clips are seen from prior cholecystectomy. Impression: 1. Nothing acute is appreciated on portable chest x-ray. Diagnostic code #1
--- NOTE | 2019-02-19 13:20 | CT ---
CT chest Comparison: Previous chest CT exam of 01/08/19. Technique: Multiple axial sections through the chest were obtained. Intravenous contrast was utilized. Study performed as a pulmonary angiogram protocol. Findings: Pulmonary arteries are well opacified. No filling defects are seen to indicate pulmonary embolism. Aorta shows no aneurysm. No mediastinal adenopathy or mass is seen. No pericardial thickening is seen. Visualized upper abdominal structures show no discrete abnormality. Lungs show no acute parenchymal change. No pleural effusions are seen. Bone window settings were reviewed which show no acute osseous finding. Mild degenerative change is seen within the spine. Impression: 1. No findings of pulmonary embolism. 2. Nothing acute is appreciated on CT study of the chest. Diagnostic code #2
== END 2019-02-19 14:48 | disposition home or self-care (01) ==
LOC: JD.ED 09:15
DX: R09.1 Pleurisy (principal); R55 Syncope and collapse; I50.9 Heart failure, unspecified; Z88.5 Allergy status to narcotic agent; Z79.82 Long term (current) use of aspirin; Z79.899 Other long term (current) drug therapy; Z98.890 Other specified postprocedural states; Z90.49 Acquired absence of other specified parts of digestive tract
CPT/HCPCS: 36415; 71045; 71275; 80053; 84484; 85025; 85379; 93005; 93225; 93226; 96361; 96374; 96375; 96376; 99285; A9270; J1885; J2405; J3010; J7030; J7040; Q9967; 93010; 99284; J7050